=== PATIENT | male | born 1950 | race African-American/Black ===

== ENCOUNTER 2021-10-29 15:25 | Inpatient (IN) ==
[2021-10-29] MEDS ORDERED: Albuterol/Ipratropium NEB.SOL (2.5/0.5 MG) 3 ML NEB.SOLN ONE (15:29)
[2021-10-29] MEDS ORDERED: Albuterol/Ipratropium NEB.SOL (2.5/0.5 MG) 3 ML NEB.SOLN INH ONE (15:40)
[2021-10-29 15:50] LABS: ABS Lymphocytes 1.1 10^3/ul (1.0-4.8); ABS Monocytes 0.3 10^3/ul (0-0.8); ABS Neutrophils 7.1 10^3/ul (1.5-7.7); Eosinophil % 0.1 %; Hematocrit 28 % (42-52); Hemoglobin 9.1 g/dL (14.0-18.0); Lymphocyte % 12.8 %; Mean Corpuscular HGB Conc 33 g/dL (31-36); Mean Corpuscular Hemoglobin 24 pg (27-31); Mean Corpuscular Volume 74 fL (80-94); Mean Platelet Volume 7.2 fL (7.4-10.4); Platelet Count 455 10^3/uL (150-450); Red Blood Count 3.76 10^6 /uL (4.18-5.48); Red Cell Distribution Width 17 % (10-15); White Blood Count 8.5 10^3/uL (3.5-10.8)
[2021-10-29 15:56] LABS: Activated Partial Thrombo Time 45.6 seconds (26.0-38.0); INR 2.16 (0.86-1.15)
[2021-10-29 15:56] LABS: PCO2 Arterial 36 mmHg (35-45); PO2 Arterial 160 mmHg (80-100)
[2021-10-29] MEDS ORDERED: Piperacillin/Tazobac ADVAN 3.375 GM in NS 0.9% 100 ml BAG 100 ML IV ONE (16:49)
[2021-10-29 16:55] LABS: Albumin 3.4 g/dL (3.2-5.2); Albumin/Globulin Ratio 0.8 (1-3); C Reactive Protein 375.93 mg/L (<8.01); Calcium 10.2 mg/dL (8.6-10.3); Globulin 4.2 g/dL (2-4); Potassium 3.9 mmol/L (3.5-5.0); Total Protein 7.6 g/dL (6.4-8.9); eGFR CKD-EPI 55.4 (>60)
[2021-10-29] MEDS ORDERED: NS 0.9% 1000 ml BAG 1,000 ML IV ONE ×2 (17:00→21:21)
[2021-10-29 17:18] LABS: High Sensitivity Troponin 1 Hr 182 pg/mL (<20)
[2021-10-29 20:26] LABS: Urine Appearance Cloudy; Urine Bilirubin Negative (Negative); Urine Blood 2+ (Negative); Urine Color Amber; Urine Glucose Negative (Negative); Urine Ketones Trace (Negative); Urine Nitrite Negative (Negative); Urine Protein 1+(30 mg/dL) (Negative); Urine Specific Gravity 1.021 (1.002-1.030); Urine Urobilinogen Positive (Negative)
[2021-10-29 20:31] LABS: Urine Bacteria Absent (Absent); Urine Red Blood Cell 3+(>10/hpf) (Absent); Urine Squamous Epithelial Cell Present (Absent); Urine White Blood Cell 3+(>20/hpf) (Absent)
[2021-10-29] MEDS ORDERED: Vancomycin 750 MG in NS 0.9% 250 ml 250 ML IVPB ONE (21:28)
[2021-10-29 21:40] LABS: HDL Cholesterol 34.6 mg/dL
[2021-10-29] MEDS ORDERED: Vancomycin per Pharmacy 1 EA NOTE FOLLOW UP PRN ×2 (21:42→23:22)
[2021-10-29] MEDS ORDERED: metroNIDAZOLE IV 500 MG/100ML - ED ONCE IVPB ONE (22:00)
[2021-10-29] MEDS ORDERED: cefTRIAXone 1 gm/50 mL D5W 1 GM/50 ML BAG IV ONE (22:00)
[2021-10-30] MEDS: NS 0.9% 1000 ml BAG 1,000 ML IV SCH ×2 (00:02→11:58)
[2021-10-30] MEDS: metroNIDAZOLE IV 500 MG/100ML 500 MG/100 ML BAG IVPB SCH ×3 (05:26→21:57)
[2021-10-30] MEDS ORDERED: metroNIDAZOLE IV 500 MG/100ML 500 MG/100 ML BAG IVPB SCH (06:00)
[2021-10-30 07:11] LABS: Activated Partial Thrombo Time 43.2 seconds (26.0-38.0); INR 1.82 (0.86-1.15)
[2021-10-30 07:29] LABS: Anion Gap 9 mmol/L (2-11); Blood Urea Nitrogen 28 mg/dL (6-24); CO2 Carbon Dioxide 27 mmol/L (22-32); Calcium 8.8 mg/dL (8.6-10.3); Chloride 101 mmol/L (101-111); Glucose 75 mg/dL (70-100); Potassium 3.2 mmol/L (3.5-5.0); Sodium 137 mmol/L (135-145); eGFR CKD-EPI 96.9 (>60)
[2021-10-30] MEDS ORDERED: Potassium Chlor 10 meq TAB PO ONE (07:55)
[2021-10-30 08:01] LABS: ABS Lymphocytes 1.5 10^3/ul (1.0-4.8); ABS Monocytes 0.3 10^3/ul (0-0.8); ABS Neutrophils 5.9 10^3/ul (1.5-7.7); Eosinophil % 0.1 %; Hematocrit 24 % (42-52); Hemoglobin 7.8 g/dL (14.0-18.0); Lymphocyte % 19.8 %; Mean Corpuscular HGB Conc 32 g/dL (31-36); Mean Corpuscular Hemoglobin 24 pg (27-31); Mean Corpuscular Volume 75 fL (80-94); Mean Platelet Volume 7.8 fL (7.4-10.4); Platelet Count 377 10^3/uL (150-450); Red Blood Count 3.25 10^6 /uL (4.18-5.48); Red Cell Distribution Width 17 % (10-15); White Blood Count 7.8 10^3/uL (3.5-10.8)
[2021-10-30 11:07] LABS: Total Iron Binding Capacity 109 mcg/dL (250-450); Transferrin 78 mg/dL (203-362)
[2021-10-30] MEDS ORDERED: Iohexol 350 (CONTRAST) 500 ML MDV IV ONE (11:11)
[2021-10-30 11:13] LABS: % Iron Saturation 18 % (15-55); Iron < 20 ug/dL (50-212); Unsaturated Iron Binding 89 ug/dL
[2021-10-30 11:27] LABS: Ferritin 904.3 ng/mL (24-336)
[2021-10-30] MEDS ORDERED: Perflutren Lipid Microsphere 3 ML VIAL ONE (11:35)
[2021-10-30] MEDS ORDERED: Vancomycin 500 MG in NS 0.9% 250 ML IVPB SCH (13:00)
[2021-10-30] MEDS ORDERED: Vancomycin 1000 MG in NS 0.9% 250 ML IVPB ONE (14:00)
[2021-10-30] MEDS: HYDROcodone/ACETAMIN 5/325 mg TAB PO PRN (20:46)
[2021-10-30] MEDS: cefTRIAXone 1 gm/50 mL D5W 1 GM/50 ML BAG IV SCH (20:46)
[2021-10-30] MEDS ORDERED: cefTRIAXone 1 gm/50 mL D5W 1 GM/50 ML BAG IV SCH (21:00)
[2021-10-31] MEDS: NS 0.9% 1000 ml BAG 1,000 ML IV SCH ×2 (00:12→17:48)
[2021-10-31] MEDS: metroNIDAZOLE IV 500 MG/100ML 500 MG/100 ML BAG IVPB SCH ×3 (05:30→22:14)
[2021-10-31 05:47] LABS: Hematocrit 23 % (42-52); Hemoglobin 7.2 g/dL (14.0-18.0); Mean Corpuscular HGB Conc 32 g/dL (31-36); Mean Corpuscular Hemoglobin 24 pg (27-31); Mean Corpuscular Volume 74 fL (80-94); Mean Platelet Volume 7.5 fL (7.4-10.4); Platelet Count 364 10^3/uL (150-450); Red Blood Count 3.05 10^6 /uL (4.18-5.48); Red Cell Distribution Width 17 % (10-15); White Blood Count 7.9 10^3/uL (3.5-10.8)
[2021-10-31 06:12] LABS: C Reactive Protein 203.29 mg/L (<8.01); Calcium 8.6 mg/dL (8.6-10.3); Potassium 3.4 mmol/L (3.5-5.0)
[2021-10-31] MEDS: Vancomycin 1000 MG in NS 0.9% 250 ML IVPB SCH ×2 (06:40→17:45)
[2021-10-31 06:54] LABS: Target Cells 1+
[2021-10-31 06:56] LABS: ABS Lymphocytes 1.9 10^3/ul (1.0-4.8); ABS Monocytes 0.3 10^3/ul (0-0.8); ABS Neutrophils 5.6 10^3/ul (1.5-7.7); Eosinophil % 0.4 %; Lymphocyte % 24.3 %
[2021-10-31] MEDS ORDERED: Potassium Chlor 20 meq TAB.ER PO ONE (07:46)
[2021-10-31] MEDS ORDERED: Vancomycin Trough Check NOTE FOLLOW UP ONE (12:30)
[2021-10-31] MEDS: HYDROcodone/ACETAMIN 5/325 mg TAB PO PRN (13:48)
[2021-10-31] MEDS: Collagenase 250 units/gm OINT 1 tube TOPICAL SCH (15:01)
[2021-10-31 16:11] LABS: Hematocrit for Retic CNT 23 % (42-52); RBC Retic Count 3.05 10^6/uL (4.18-5.48)
[2021-10-31 16:15] LABS: Corrected Retic Count 0.4 % (0.5-1.5); Immature Retic Fraction 0.38
[2021-10-31] MEDS: cefTRIAXone 1 gm/50 mL D5W 1 GM/50 ML BAG IV SCH (20:20)
[2021-11-01] MEDS ORDERED: Vancomycin Trough Check NOTE FOLLOW UP ONE (05:30)
[2021-11-01] MEDS: metroNIDAZOLE IV 500 MG/100ML 500 MG/100 ML BAG IVPB SCH ×3 (06:10→21:54)
[2021-11-01] MEDS: NS 0.9% 1000 ml BAG 1,000 ML IV SCH (06:11)
[2021-11-01 06:49] LABS: Calcium 8.6 mg/dL (8.6-10.3); Magnesium 1.7 mg/dL (1.9-2.7); Potassium 3.1 mmol/L (3.5-5.0)
[2021-11-01 07:02] LABS: Hematocrit 24 % (42-52); Hemoglobin 7.9 g/dL (14.0-18.0); Mean Corpuscular HGB Conc 32 g/dL (31-36); Mean Corpuscular Hemoglobin 24 pg (27-31); Mean Corpuscular Volume 74 fL (80-94); Mean Platelet Volume 7.8 fL (7.4-10.4); Platelet Count 396 10^3/uL (150-450); Red Blood Count 3.28 10^6 /uL (4.18-5.48); Red Cell Distribution Width 17 % (10-15); White Blood Count 7.7 10^3/uL (3.5-10.8)
[2021-11-01 07:20] LABS: ABS Basophils 0.1 10^3/ul (0-0.2); ABS Monocytes 0.3 10^3/ul (0-0.8); ABS Neutrophils 5.3 10^3/ul (1.5-7.7); Eosinophil % 0.5 %; Lymphocyte % 25.9 %
[2021-11-01] MEDS ORDERED: Magnesium Sulfate IV 3 GM in NS 0.9% 100 ml BAG 100 ML IVPB ONE (07:38)
[2021-11-01] MEDS ORDERED: Magnesium Sulfate 2 GM IV (Premix) IVPB ONE (08:00)
[2021-11-01] MEDS ORDERED: Magnesium Sulfate 1 GM IV 1 GM/100 ML BAG IV ONE (08:00)
[2021-11-01] MEDS: KCL 20 MEQ/100 ML IVPREMIX 20 MEQ/100 ML BAG IV SCH ×2 (08:56→16:29)
[2021-11-01] MEDS: Collagenase 250 units/gm OINT 1 tube TOPICAL SCH (09:01)
[2021-11-01] MEDS: Vancomycin 1000 MG in NS 0.9% 250 ML IVPB SCH ×2 (10:08→17:08)
[2021-11-01] MEDS: D5W 1/2 NS KCl 20 meq 1000 ml 1,000 ML IV SCH (15:57)
[2021-11-01] MEDS: cefTRIAXone 1 gm/50 mL D5W 1 GM/50 ML BAG IV SCH (20:13)
[2021-11-02] MEDS: D5W 1/2 NS KCl 20 meq 1000 ml 1,000 ML IV SCH ×2 (02:10→23:20)
[2021-11-02] MEDS: metroNIDAZOLE IV 500 MG/100ML 500 MG/100 ML BAG IVPB SCH ×3 (06:23→23:20)
[2021-11-02] MEDS: Vancomycin 1000 MG in NS 0.9% 250 ML IVPB SCH ×2 (06:23→18:54)
[2021-11-02 08:24] LABS: C Reactive Protein 117.53 mg/L (<8.01); Calcium 8.3 mg/dL (8.6-10.3); Potassium 3.5 mmol/L (3.5-5.0); eGFR CKD-EPI 107.3 (>60)
[2021-11-02 10:17] LABS: ABS Eosinophils 0.1 10^3/ul (0-0.6); ABS Lymphocytes 2.4 10^3/ul (1.0-4.8); ABS Monocytes 0.3 10^3/ul (0-0.8); ABS Neutrophils 4.7 10^3/ul (1.5-7.7); Hematocrit 26 % (42-52); Hemoglobin 8.2 g/dL (14.0-18.0); Mean Corpuscular HGB Conc 32 g/dL (31-36); Mean Corpuscular Hemoglobin 24 pg (27-31); Mean Corpuscular Volume 74 fL (80-94); Mean Platelet Volume 7.9 fL (7.4-10.4); Platelet Count 387 10^3/uL (150-450); Red Blood Count 3.42 10^6 /uL (4.18-5.48); Red Cell Distribution Width 17 % (10-15); White Blood Count 7.5 10^3/uL (3.5-10.8)
[2021-11-02] MEDS: Collagenase 250 units/gm OINT 1 tube TOPICAL SCH (15:24)
[2021-11-02] MEDS: Acetaminophen IV 1 GM/100ML 100 ML IV PRN (23:08)
[2021-11-02] MEDS: cefTRIAXone 1 gm/50 mL D5W 1 GM/50 ML BAG IV SCH (23:20)
[2021-11-02] MEDS: Enoxaparin 60 MG/0.6 ML SYR SUBCUT SCH (23:20)
[2021-11-03] MEDS: Neomycin/Polym/Bacit TOP OINT 15 GM TOPICAL SCH ×4 (03:01→21:43)
[2021-11-03] MEDS: metroNIDAZOLE IV 500 MG/100ML 500 MG/100 ML BAG IVPB SCH ×3 (05:13→21:42)
[2021-11-03] MEDS ORDERED: Vancomycin Trough Check NOTE FOLLOW UP ONE (05:30)
[2021-11-03] MEDS ORDERED: NS 0.9% 1000 ml BAG 1,000 ML IV ONE (06:02)
[2021-11-03] MEDS ORDERED: Lactated Ringers 1000 ml BAG 1,000 ML IV ONE (06:04)
[2021-11-03 08:04] LABS: Hematocrit 26 % (42-52); Hemoglobin 8.4 g/dL (14.0-18.0); Mean Corpuscular HGB Conc 33 g/dL (31-36); Mean Corpuscular Hemoglobin 25 pg (27-31); Mean Corpuscular Volume 74 fL (80-94); Mean Platelet Volume 7.8 fL (7.4-10.4); Platelet Count 414 10^3/uL (150-450); Red Blood Count 3.44 10^6 /uL (4.18-5.48); Red Cell Distribution Width 17 % (10-15); White Blood Count 8.6 10^3/uL (3.5-10.8)
[2021-11-03 08:20] LABS: Magnesium 1.8 mg/dL (1.9-2.7); Potassium 3.2 mmol/L (3.5-5.0); eGFR CKD-EPI 105.6 (>60)
[2021-11-03] MEDS: Vancomycin 1000 MG in NS 0.9% 250 ML IVPB SCH (08:30)
[2021-11-03 09:23] LABS: Anisocytosis 1+; Hypochromasia 1+; Microcytosis 2+
[2021-11-03 09:24] LABS: ABS Lymphocytes 1.6 10^3/ul (1.0-4.8); ABS Neutrophils 6.5 10^3/ul (1.5-7.7)
[2021-11-03] MEDS: Morphine 2 MG/ML SYRINGE IV PRN (13:50)
[2021-11-03] MEDS ORDERED: Vancomycin 1,500 MG in NS 0.9% 250 ml 250 ML IVPB SCH (14:00)
[2021-11-03] MEDS: Enoxaparin 60 MG/0.6 ML SYR SUBCUT SCH ×2 (14:48→21:43)
[2021-11-03] MEDS: Collagenase 250 units/gm OINT 1 tube TOPICAL SCH (14:49)
[2021-11-03] MEDS: cefTRIAXone 1 gm/50 mL D5W 1 GM/50 ML BAG IV SCH (21:43)
[2021-11-03] MEDS ORDERED: Lactated Ringers 500 ml BAG 500 ML IV ONE (23:47)
[2021-11-04] MEDS: D5W 1/2 NS KCl 20 meq 1000 ml 1,000 ML IV SCH ×2 (01:37→23:14)
[2021-11-04] MEDS ORDERED: Lactated Ringers 1000 ml BAG 1,000 ML IV ONE ×2 (04:00→23:25)
[2021-11-04] MEDS: metroNIDAZOLE IV 500 MG/100ML 500 MG/100 ML BAG IVPB SCH ×3 (06:05→23:05)
[2021-11-04 08:01] LABS: CO2 Carbon Dioxide 18 mmol/L (22-32); Calcium 7.9 mg/dL (8.6-10.3); Chloride 110 mmol/L (101-111); Sodium 137 mmol/L (135-145)
[2021-11-04 08:07] LABS: Blood Urea Nitrogen 5 mg/dL (6-24); Glucose 80 mg/dL (70-100); eGFR CKD-EPI 105.6 (>60)
[2021-11-04 08:11] LABS: Anion Gap 9 mmol/L (2-11)
[2021-11-04 08:28] LABS: Hematocrit 30 % (42-52); Hemoglobin 9.2 g/dL (14.0-18.0); Mean Corpuscular HGB Conc 30 g/dL (31-36); Mean Corpuscular Hemoglobin 24 pg (27-31); Mean Corpuscular Volume 79 fL (80-94); Mean Platelet Volume 7.8 fL (7.4-10.4); Platelet Count 362 10^3/uL (150-450); Red Blood Count 3.82 10^6 /uL (4.18-5.48); Red Cell Distribution Width 18 % (10-15); White Blood Count 10.7 10^3/uL (3.5-10.8)
[2021-11-04 09:05] LABS: RBC Morphology Normal (Normal)
[2021-11-04 09:06] LABS: ABS Eosinophils 0.1 10^3/ul (0-0.6); ABS Neutrophils 9.3 10^3/ul (1.5-7.7)
[2021-11-04] MEDS: Neomycin/Polym/Bacit TOP OINT 15 GM TOPICAL SCH ×3 (09:35→23:05)
[2021-11-04] MEDS: Enoxaparin 60 MG/0.6 ML SYR SUBCUT SCH ×2 (12:05→23:05)
[2021-11-04] MEDS: Collagenase 250 units/gm OINT 1 tube TOPICAL SCH (12:23)
[2021-11-04] MEDS ORDERED: Iohexol 300 (CONTRAST) 10 ML SDV IV ONE (13:53)
[2021-11-04] MEDS: cefTRIAXone 1 gm/50 mL D5W 1 GM/50 ML BAG IV SCH (23:05)
[2021-11-05] MEDS: metroNIDAZOLE IV 500 MG/100ML 500 MG/100 ML BAG IVPB SCH ×3 (06:44→22:51)
[2021-11-05] MEDS: Neomycin/Polym/Bacit TOP OINT 15 GM TOPICAL SCH ×3 (09:00→23:04)
[2021-11-05] MEDS: Collagenase 250 units/gm OINT 1 tube TOPICAL SCH (09:00)
[2021-11-05] MEDS ORDERED: Lactated Ringers 1000 ml BAG 1,000 ML IV ONE (12:11)
[2021-11-05] MEDS: Enoxaparin 60 MG/0.6 ML SYR SUBCUT SCH ×2 (12:16→21:46)
[2021-11-05] MEDS ORDERED: Vancomycin Trough Check NOTE FOLLOW UP ONE (13:30)
[2021-11-05 13:32] LABS: ABS Basophils 0.1 10^3/ul (0-0.2); ABS Lymphocytes 0.6 10^3/ul (1.0-4.8); ABS Monocytes 0.8 10^3/ul (0-0.8); ABS Neutrophils 12.5 10^3/ul (1.5-7.7); Eosinophil % 0.2 %; Hematocrit 28 % (42-52); Hemoglobin 8.9 g/dL (14.0-18.0); Lymphocyte % 4.2 %; Mean Corpuscular HGB Conc 32 g/dL (31-36); Mean Corpuscular Hemoglobin 24 pg (27-31); Mean Corpuscular Volume 74 fL (80-94); Mean Platelet Volume 7.8 fL (7.4-10.4); Platelet Count 547 10^3/uL (150-450); Red Blood Count 3.78 10^6 /uL (4.18-5.48); Red Cell Distribution Width 18 % (10-15)
[2021-11-05 13:51] LABS: Target Cells 1+
[2021-11-05 14:38] LABS: Albumin 2.3 g/dL (3.2-5.2); Calcium 7.9 mg/dL (8.6-10.3); Potassium 3.4 mmol/L (3.5-5.0); Total Bilirubin 0.5 mg/dL (0.2-1.0)
[2021-11-05 14:45] LABS: Albumin/Globulin Ratio 0.8 (1-3); Globulin 2.8 g/dL (2-4); Total Protein 5.1 g/dL (6.4-8.9)
[2021-11-05] MEDS: Morphine 2 MG/ML SYRINGE IV PRN (14:58)
[2021-11-05] MEDS: D5W 1/2 NS KCl 20 meq 1000 ml 1,000 ML IV SCH (19:09)
[2021-11-05] MEDS: cefTRIAXone 1 gm/50 mL D5W 1 GM/50 ML BAG IV SCH (21:44)
[2021-11-06] MEDS ORDERED: Lactated Ringers 500 ml BAG 500 ML IV SCH (05:00)
[2021-11-06] MEDS: metroNIDAZOLE IV 500 MG/100ML 500 MG/100 ML BAG IVPB SCH ×3 (05:15→22:27)
[2021-11-06 06:57] LABS: ABS Lymphocytes 0.5 10^3/ul (1.0-4.8); ABS Monocytes 0.7 10^3/ul (0-0.8); ABS Neutrophils 10.8 10^3/ul (1.5-7.7); Eosinophil % 0.2 %; Hematocrit 24 % (42-52); Hemoglobin 7.8 g/dL (14.0-18.0); Lymphocyte % 3.9 %; Mean Corpuscular HGB Conc 32 g/dL (31-36); Mean Corpuscular Hemoglobin 24 pg (27-31); Mean Corpuscular Volume 74 fL (80-94); Mean Platelet Volume 7.7 fL (7.4-10.4); Platelet Count 389 10^3/uL (150-450); Red Blood Count 3.25 10^6 /uL (4.18-5.48); Red Cell Distribution Width 17 % (10-15); White Blood Count 12.1 10^3/uL (3.5-10.8)
[2021-11-06 07:20] LABS: Albumin 1.8 g/dL (3.2-5.2); Albumin/Globulin Ratio 0.6 (1-3); Calcium 7.6 mg/dL (8.6-10.3); Globulin 2.8 g/dL (2-4); Magnesium 1.6 mg/dL (1.9-2.7); Potassium 3.5 mmol/L (3.5-5.0); Total Bilirubin 0.4 mg/dL (0.2-1.0); Total Protein 4.6 g/dL (6.4-8.9); eGFR CKD-EPI 106.7 (>60)
[2021-11-06] MEDS ORDERED: Magnesium Sulfate 2 gm BAG 2 GM/50 ML BAG IVPB ONE ×2 (08:38→10:02)
[2021-11-06] MEDS: Collagenase 250 units/gm OINT 1 tube TOPICAL SCH (10:29)
[2021-11-06] MEDS: Neomycin/Polym/Bacit TOP OINT 15 GM TOPICAL SCH ×3 (10:29→22:38)
[2021-11-06] MEDS: Enoxaparin 60 MG/0.6 ML SYR SUBCUT SCH (10:38)
[2021-11-06] MEDS: D5W 1/2 NS KCl 20 meq 1000 ml 1,000 ML IV SCH (12:31)
[2021-11-06] MEDS: TPN 24 HR with D10W 1000 ml BAG 1,000 ML, Amino Acid Infusion 10% 850 ML, Sterile Water... IV SCH (17:56)
[2021-11-06] MEDS: Morphine 2 MG/ML SYRINGE IV PRN (21:24)
[2021-11-06] MEDS: cefTRIAXone 1 gm/50 mL D5W 1 GM/50 ML BAG IV SCH (21:27)
[2021-11-07] MEDS: metroNIDAZOLE IV 500 MG/100ML 500 MG/100 ML BAG IVPB SCH ×3 (06:07→23:01)
[2021-11-07 09:02] LABS: Hematocrit 24 % (42-52); Hemoglobin 7.6 g/dL (14.0-18.0); Mean Corpuscular HGB Conc 32 g/dL (31-36); Mean Corpuscular Hemoglobin 24 pg (27-31); Mean Corpuscular Volume 75 fL (80-94); Mean Platelet Volume 7.7 fL (7.4-10.4); Platelet Count 460 10^3/uL (150-450); Red Blood Count 3.17 10^6 /uL (4.18-5.48); Red Cell Distribution Width 17 % (10-15); White Blood Count 13.2 10^3/uL (3.5-10.8)
[2021-11-07 09:43] LABS: Albumin 1.9 g/dL (3.2-5.2); Calcium 7.9 mg/dL (8.6-10.3); Magnesium 1.9 mg/dL (1.9-2.7); Potassium 3.8 mmol/L (3.5-5.0); Total Bilirubin 0.3 mg/dL (0.2-1.0)
[2021-11-07 09:50] LABS: Albumin/Globulin Ratio 0.7 (1-3); Globulin 2.8 g/dL (2-4); Phosphorus 2.4 mg/dL (2.5-5.0); Total Protein 4.7 g/dL (6.4-8.9); eGFR CKD-EPI 108.5 (>60)
[2021-11-07 09:59] LABS: Microcytosis 2+; Target Cells 2+
[2021-11-07 10:00] LABS: ABS Lymphocytes 1.8 10^3/ul (1.0-4.8)
[2021-11-07] MEDS: Collagenase 250 units/gm OINT 1 tube TOPICAL SCH (11:16)
[2021-11-07] MEDS: Neomycin/Polym/Bacit TOP OINT 15 GM TOPICAL SCH ×2 (11:16→12:49)
[2021-11-07] MEDS: Enoxaparin 60 MG/0.6 ML SYR SUBCUT SCH ×2 (12:48)
[2021-11-07 14:51] LABS: C Reactive Protein 126.78 mg/L (<8.01)
[2021-11-07] MEDS ORDERED: LORazepam 2 mg VIAL 1 ml IV PUSH ONE (19:07)
[2021-11-07] MEDS ORDERED: Lorazepam PYXIS KEY PRN (19:07)
[2021-11-07 20:04] LABS: Copper Level 1.12 mcg/mL (0.75-1.45)
[2021-11-07] MEDS: Morphine 2 MG/ML SYRINGE IV PRN ×2 (20:13→22:09)
[2021-11-07] MEDS: TPN 24 HR with D10W 1000 ml BAG 1,000 ML, Amino Acid Infusion 10% 850 ML, Sterile Water... IV SCH (20:15)
[2021-11-07] MEDS: Acetaminophen IV 1 GM/100ML 100 ML IV PRN (20:44)
[2021-11-07] MEDS: cefTRIAXone 1 gm/50 mL D5W 1 GM/50 ML BAG IV SCH (22:10)
[2021-11-08] MEDS: Neomycin/Polym/Bacit TOP OINT 15 GM TOPICAL SCH ×5 (00:45→22:09)
[2021-11-08] MEDS: Enoxaparin 60 MG/0.6 ML SYR SUBCUT SCH ×3 (00:46→22:03)
[2021-11-08] MEDS: metroNIDAZOLE IV 500 MG/100ML 500 MG/100 ML BAG IVPB SCH ×3 (06:20→22:05)
[2021-11-08 07:27] LABS: Albumin 1.9 g/dL (3.2-5.2); CO2 Carbon Dioxide 24 mmol/L (22-32); Calcium 7.8 mg/dL (8.6-10.3); Chloride 109 mmol/L (101-111); Sodium 137 mmol/L (135-145)
[2021-11-08 07:34] LABS: ALT 4 U/L (7-52); Albumin/Globulin Ratio 0.6 (1-3); Alkaline Phosphatase 74 U/L (35-149); Blood Urea Nitrogen 10 mg/dL (6-24); Cholesterol 148 mg/dL; Globulin 3.1 g/dL (2-4); Glucose 77 mg/dL (70-100); Prealbumin 6 mg/dL (18-38); Triglycerides 101 mg/dL; eGFR CKD-EPI 109.8 (>60)
[2021-11-08 07:36] LABS: Hematocrit 24 % (42-52); Hemoglobin 7.7 g/dL (14.0-18.0); Mean Corpuscular HGB Conc 32 g/dL (31-36); Mean Corpuscular Hemoglobin 24 pg (27-31); Mean Corpuscular Volume 75 fL (80-94); Red Blood Count 3.17 10^6 /uL (4.18-5.48); Red Cell Distribution Width 18 % (10-15); White Blood Count 10.4 10^3/uL (3.5-10.8)
[2021-11-08 07:43] LABS: Anion Gap 4 mmol/L (2-11)
[2021-11-08 08:39] LABS: Anisocytosis 2+; Hypochromasia 1+; Microcytosis 1+; Target Cells 1+
[2021-11-08 08:40] LABS: Mean Platelet Volume 8.5 fL (7.4-10.4); Platelet Count 371 10^3/uL (150-450)
[2021-11-08 08:41] LABS: ABS Eosinophils 0.1 10^3/ul (0-0.6); ABS Lymphocytes 1.4 10^3/ul (1.0-4.8); ABS Neutrophils 8.4 10^3/ul (1.5-7.7)
[2021-11-08] MEDS: Collagenase 250 units/gm OINT 1 tube TOPICAL SCH (09:25)
[2021-11-08 10:09] LABS: Potassium Redraw 3.8 mmol/L (3.5-5.0)
[2021-11-08 10:15] LABS: Phosphorus 2.5 mg/dL (2.5-5.0)
[2021-11-08] MEDS ORDERED: LORazepam 2 mg VIAL 1 ml IM ONE (14:39)
[2021-11-08] MEDS ORDERED: Lorazepam PYXIS KEY PRN ×2 (14:39→18:10)
[2021-11-08] MEDS ORDERED: Morphine ORAL CONCENTRATE 5 MG/0.25 ML ORAL.SYRIN SL ONE (14:41)
[2021-11-08] MEDS: TPN 24 HR with D10W 1000 ml BAG 1,000 ML, Amino Acid Infusion 10% 850 ML, Sterile Water... IV SCH (16:34)
[2021-11-08] MEDS ORDERED: LORazepam 2 mg VIAL 1 ml IV PUSH ONE (18:10)
[2021-11-08 18:39] LABS: HIV 4th Generation Nonreactive (Nonreactive)
[2021-11-08] MEDS: cefTRIAXone 1 gm/50 mL D5W 1 GM/50 ML BAG IV SCH (21:57)
[2021-11-08] MEDS: Morphine 2 MG/ML SYRINGE IV PRN (22:12)
[2021-11-09] MEDS: metroNIDAZOLE IV 500 MG/100ML 500 MG/100 ML BAG IVPB SCH (05:43)
[2021-11-09 06:18] LABS: Hematocrit 19 % (42-52); Hemoglobin 6.2 g/dL (14.0-18.0); Mean Corpuscular HGB Conc 33 g/dL (31-36); Mean Corpuscular Hemoglobin 24 pg (27-31); Mean Corpuscular Volume 73 fL (80-94); Mean Platelet Volume 7.2 fL (7.4-10.4); Platelet Count 401 10^3/uL (150-450); Red Blood Count 2.59 10^6 /uL (4.18-5.48); Red Cell Distribution Width 17 % (10-15); White Blood Count 9.6 10^3/uL (3.5-10.8)
[2021-11-09 06:22] LABS: ABS Lymphocytes 1.1 10^3/ul (1.0-4.8); ABS Monocytes 0.4 10^3/ul (0-0.8); Eosinophil % 0.4 %; Lymphocyte % 11.9 %
[2021-11-09 07:34] LABS: Albumin 1.8 g/dL (3.2-5.2); Albumin/Globulin Ratio 0.7 (1-3); Calcium 7.5 mg/dL (8.6-10.3); Globulin 2.5 g/dL (2-4); Magnesium 1.8 mg/dL (1.9-2.7); Phosphorus 2.5 mg/dL (2.5-5.0); Potassium 3.5 mmol/L (3.5-5.0); Total Bilirubin 0.2 mg/dL (0.2-1.0); Total Protein 4.3 g/dL (6.4-8.9)
[2021-11-09] MEDS: Neomycin/Polym/Bacit TOP OINT 15 GM TOPICAL SCH ×3 (11:02→21:01)
[2021-11-09] MEDS: Enoxaparin 60 MG/0.6 ML SYR SUBCUT SCH (11:02)
[2021-11-09] MEDS: Collagenase 250 units/gm OINT 1 tube TOPICAL SCH (11:02)
[2021-11-09] MEDS: Morphine 2 MG/ML SYRINGE IV PRN (11:03)
[2021-11-09] MEDS ORDERED: Magnesium Sulfate 2 gm BAG 2 GM/50 ML BAG IVPB ONE (11:41)
[2021-11-09] MEDS: TPN 24 HR with D10W 1000 ml BAG 1,000 ML, Amino Acid Infusion 10% 850 ML, Sterile Water... IV SCH (17:11)
[2021-11-09] MEDS: Pantoprazole VIAL 40 MG VIAL IV SCH (20:55)
[2021-11-09 22:47] LABS: Hematocrit 22 % (42-52); Hemoglobin 7.2 g/dL (14.0-18.0)
[2021-11-10 06:46] LABS: Albumin 1.8 g/dL (3.2-5.2); Albumin/Globulin Ratio 0.7 (1-3); Calcium 7.6 mg/dL (8.6-10.3); Globulin 2.5 g/dL (2-4); Phosphorus 2.3 mg/dL (2.5-5.0); Potassium 3.5 mmol/L (3.5-5.0); Total Bilirubin 0.3 mg/dL (0.2-1.0); Total Protein 4.3 g/dL (6.4-8.9); eGFR CKD-EPI 114.8 (>60)
[2021-11-10] MEDS: Collagenase 250 units/gm OINT 1 tube TOPICAL SCH (11:17)
[2021-11-10] MEDS: Neomycin/Polym/Bacit TOP OINT 15 GM TOPICAL SCH ×3 (11:17→20:26)
[2021-11-10] MEDS: Pantoprazole VIAL 40 MG VIAL IV SCH ×2 (11:17→20:27)
[2021-11-10] MEDS: Morphine 2 MG/ML SYRINGE IV PRN ×3 (11:17→17:06)
[2021-11-10 17:44] LABS: ABS Eosinophils 0.1 10^3/ul (0-0.6); ABS Lymphocytes 0.9 10^3/ul (1.0-4.8); ABS Monocytes 0.4 10^3/ul (0-0.8); ABS Neutrophils 7.2 10^3/ul (1.5-7.7); Eosinophil % 0.6 %; Hematocrit 22 % (42-52); Hemoglobin 7.2 g/dL (14.0-18.0); Lymphocyte % 10.8 %; Mean Corpuscular HGB Conc 33 g/dL (31-36); Mean Corpuscular Hemoglobin 24 pg (27-31); Mean Corpuscular Volume 73 fL (80-94); Mean Platelet Volume 7.2 fL (7.4-10.4); Platelet Count 368 10^3/uL (150-450); Red Blood Count 3.01 10^6 /uL (4.18-5.48); Red Cell Distribution Width 17 % (10-15); White Blood Count 8.6 10^3/uL (3.5-10.8)
[2021-11-10] MEDS: TPN 24 HR with Dextrose 70% Water 350 ML, Amino Acid Infusion 10% 850 ML, Sterile Water... TPN SCH (17:48)
[2021-11-10 18:06] LABS: Albumin 1.9 g/dL (3.2-5.2); Albumin/Globulin Ratio 0.8 (1-3); C Reactive Protein 67.24 mg/L (<8.01); Calcium 7.5 mg/dL (8.6-10.3); Globulin 2.3 g/dL (2-4); Potassium 3.7 mmol/L (3.5-5.0); Total Bilirubin 0.3 mg/dL (0.2-1.0); Total Protein 4.2 g/dL (6.4-8.9)
[2021-11-11 05:20] LABS: ABS Eosinophils 0.1 10^3/ul (0-0.6); ABS Monocytes 0.3 10^3/ul (0-0.8); ABS Neutrophils 5.5 10^3/ul (1.5-7.7); Eosinophil % 0.7 %; Hematocrit 20 % (42-52); Hemoglobin 6.5 g/dL (14.0-18.0); Lymphocyte % 14.1 %; Mean Corpuscular HGB Conc 33 g/dL (31-36); Mean Corpuscular Hemoglobin 24 pg (27-31); Mean Corpuscular Volume 73 fL (80-94); Mean Platelet Volume 7.1 fL (7.4-10.4); Platelet Count 351 10^3/uL (150-450); Red Blood Count 2.69 10^6 /uL (4.18-5.48); Red Cell Distribution Width 17 % (10-15); White Blood Count 6.9 10^3/uL (3.5-10.8)
[2021-11-11 05:47] LABS: ALT 4 U/L (7-52); AST 10 U/L (13-39); Albumin 1.7 g/dL (3.2-5.2); Albumin/Globulin Ratio 0.7 (1-3); Alkaline Phosphatase 54 U/L (35-149); Anion Gap 4 mmol/L (2-11); Blood Urea Nitrogen 16 mg/dL (6-24); CO2 Carbon Dioxide 25 mmol/L (22-32); Calcium 7.5 mg/dL (8.6-10.3); Chloride 108 mmol/L (101-111); Cholesterol 106 mg/dL; Globulin 2.4 g/dL (2-4); Glucose 93 mg/dL (70-100); Magnesium 1.9 mg/dL (1.9-2.7); Phosphorus 2.5 mg/dL (2.5-5.0); Potassium 3.8 mmol/L (3.5-5.0); Prealbumin 7 mg/dL (18-38); Sodium 137 mmol/L (135-145); Total Protein 4.1 g/dL (6.4-8.9); Triglycerides 107 mg/dL; eGFR CKD-EPI 112.5 (>60)
[2021-11-11] MEDS: Collagenase 250 units/gm OINT 1 tube TOPICAL SCH (08:30)
[2021-11-11] MEDS: Neomycin/Polym/Bacit TOP OINT 15 GM TOPICAL SCH ×3 (08:30→20:25)
[2021-11-11] MEDS: Pantoprazole VIAL 40 MG VIAL IV SCH ×2 (08:30→20:25)
[2021-11-11 15:24] LABS: Rheumatoid Factor < 10 IU/mL (<15)
[2021-11-11 15:40] LABS: Folate 4.67 ng/mL (5.90-24.80)
[2021-11-11 17:00] LABS: LDH 111 U/L (140-271)
[2021-11-11] MEDS: TPN 24 HR with Dextrose 70% Water 350 ML, Amino Acid Infusion 10% 850 ML, Sterile Water... TPN SCH (17:37)
[2021-11-12] MEDS ORDERED: Folic Acid IV 1 MG in NS 0.9% 50 ML 50 ML IV ONE (08:00)
[2021-11-12 08:26] LABS: ABS Eosinophils 0.1 10^3/ul (0-0.6); ABS Monocytes 0.3 10^3/ul (0-0.8); ABS Neutrophils 4.5 10^3/ul (1.5-7.7); Eosinophil % 1.1 %; Hematocrit 23 % (42-52); Hemoglobin 8.1 g/dL (14.0-18.0); Lymphocyte % 17.3 %; Mean Corpuscular HGB Conc 35 g/dL (31-36); Mean Corpuscular Hemoglobin 28 pg (27-31); Mean Corpuscular Volume 79 fL (80-94); Mean Platelet Volume 7.5 fL (7.4-10.4); Platelet Count 321 10^3/uL (150-450); Red Blood Count 2.93 10^6 /uL (4.18-5.48); Red Cell Distribution Width 19 % (10-15)
[2021-11-12] MEDS: Pantoprazole VIAL 40 MG VIAL IV SCH ×2 (09:13→21:08)
[2021-11-12] MEDS: Neomycin/Polym/Bacit TOP OINT 15 GM TOPICAL SCH ×3 (09:13→21:08)
[2021-11-12] MEDS: Collagenase 250 units/gm OINT 1 tube TOPICAL SCH (09:13)
[2021-11-12 10:25] LABS: Albumin 1.8 g/dL (3.2-5.2); Albumin/Globulin Ratio 0.7 (1-3); Calcium 7.7 mg/dL (8.6-10.3); Globulin 2.6 g/dL (2-4); Magnesium 1.8 mg/dL (1.9-2.7); Potassium 3.7 mmol/L (3.5-5.0); Total Bilirubin 0.3 mg/dL (0.2-1.0); Total Protein 4.4 g/dL (6.4-8.9); eGFR CKD-EPI 113.2 (>60)
[2021-11-12] MEDS ORDERED: Magnesium Sulfate 2 gm BAG 2 GM/50 ML BAG IVPB ONE (10:43)
[2021-11-12 11:14] LABS: Osmolality Serum 284 mOsm/kg (275-295)
[2021-11-12] MEDS: Iron Sucrose 200 MG in NS 0.9% 100 ml BAG 100 ML IVPB SCH (14:25)
[2021-11-12] MEDS: Acetaminophen IV 1 GM/100ML 100 ML IV PRN (16:23)
[2021-11-12] MEDS: TPN 24 HR with Dextrose 70% Water 350 ML, Amino Acid Infusion 10% 850 ML, Sterile Water... TPN SCH (17:27)
[2021-11-13 05:28] LABS: ABS Basophils 0.1 10^3/ul (0-0.2); ABS Eosinophils 0.1 10^3/ul (0-0.6); ABS Monocytes 0.3 10^3/ul (0-0.8); ABS Neutrophils 4.4 10^3/ul (1.5-7.7); Eosinophil % 1.7 %; Hematocrit 23 % (42-52); Hemoglobin 8.1 g/dL (14.0-18.0); Lymphocyte % 16.8 %; Mean Corpuscular HGB Conc 36 g/dL (31-36); Mean Corpuscular Hemoglobin 29 pg (27-31); Mean Corpuscular Volume 81 fL (80-94); Mean Platelet Volume 7.5 fL (7.4-10.4); Nucleated Red Blood Cells % 0.1; Platelet Count 326 10^3/uL (150-450); Red Blood Count 2.84 10^6 /uL (4.18-5.48); Red Cell Distribution Width 20 % (10-15); White Blood Count 5.8 10^3/uL (3.5-10.8)
[2021-11-13 05:35] LABS: INR 1.45 (0.86-1.15)
[2021-11-13 06:02] LABS: Albumin 1.7 g/dL (3.2-5.2); Albumin/Globulin Ratio 0.7 (1-3); Calcium 8.5 mg/dL (8.6-10.3); Globulin 2.3 g/dL (2-4); Total Bilirubin 0.2 mg/dL (0.2-1.0); eGFR CKD-EPI 107.9 (>60)
[2021-11-13 06:22] LABS: Potassium 7.3 mmol/L (3.5-5.0)
[2021-11-13] MEDS: Pantoprazole VIAL 40 MG VIAL IV SCH ×2 (10:21→21:39)
[2021-11-13 11:23] LABS: Calcium 7.9 mg/dL (8.6-10.3); Potassium 4.3 mmol/L (3.5-5.0); eGFR CKD-EPI 111.1 (>60)
[2021-11-13] MEDS: Morphine 2 MG/ML SYRINGE IV PRN (12:43)
[2021-11-13] MEDS: Iron Sucrose 200 MG in NS 0.9% 100 ml BAG 100 ML IVPB SCH (12:48)
[2021-11-13] MEDS: Collagenase 250 units/gm OINT 1 tube TOPICAL SCH (14:21)
[2021-11-13] MEDS: Neomycin/Polym/Bacit TOP OINT 15 GM TOPICAL SCH ×3 (14:22→21:40)
[2021-11-13] MEDS ORDERED: Phytonadione IV (Adult) 2.5 MG in NS 0.9% 50 ML 50 ML IV ONE (17:00)
[2021-11-13] MEDS: TPN 24 HR with Dextrose 70% Water 350 ML, Amino Acid Infusion 10% 850 ML, Sterile Water... TPN SCH (17:30)
[2021-11-14 06:08] LABS: ABS Basophils 0.1 10^3/ul (0-0.2); ABS Eosinophils 0.1 10^3/ul (0-0.6); ABS Lymphocytes 1.2 10^3/ul (1.0-4.8); ABS Monocytes 0.4 10^3/ul (0-0.8); ABS Neutrophils 5.1 10^3/ul (1.5-7.7); Eosinophil % 1.3 %; Hematocrit 24 % (42-52); Hemoglobin 7.9 g/dL (14.0-18.0); Lymphocyte % 17.5 %; Mean Corpuscular HGB Conc 33 g/dL (31-36); Mean Corpuscular Hemoglobin 25 pg (27-31); Mean Corpuscular Volume 75 fL (80-94); Mean Platelet Volume 7.6 fL (7.4-10.4); Nucleated Red Blood Cells % 0.1; Platelet Count 306 10^3/uL (150-450); Red Blood Count 3.17 10^6 /uL (4.18-5.48); Red Cell Distribution Width 19 % (10-15); White Blood Count 6.8 10^3/uL (3.5-10.8)
[2021-11-14 06:10] LABS: Calcium 7.7 mg/dL (8.6-10.3); Potassium 4.1 mmol/L (3.5-5.0)
[2021-11-14 06:16] LABS: eGFR CKD-EPI 117.2 (>60)
[2021-11-14 06:48] LABS: INR 1.29 (0.86-1.15)
[2021-11-14] MEDS: Morphine 2 MG/ML SYRINGE IV PRN (11:07)
[2021-11-14] MEDS: Iron Sucrose 200 MG in NS 0.9% 100 ml BAG 100 ML IVPB SCH (11:15)
[2021-11-14] MEDS: Pantoprazole VIAL 40 MG VIAL IV SCH ×2 (11:15→21:52)
[2021-11-14] MEDS: Collagenase 250 units/gm OINT 1 tube TOPICAL SCH (11:16)
[2021-11-14] MEDS: Neomycin/Polym/Bacit TOP OINT 15 GM TOPICAL SCH ×3 (11:16→21:56)
[2021-11-14] MEDS: Folic Acid IV 1 MG in NS 0.9% 50 ML 50 ML IV SCH (11:42)
[2021-11-14 12:38] LABS: Total Protein 4.5 g/dL (6.4-8.9)
[2021-11-14] MEDS ORDERED: Heparin 5000 UNITS/ML 1 mL VIAL SUBCUT SCH (16:00)
[2021-11-14] MEDS: TPN 24 HR with Dextrose 70% Water 350 ML, Amino Acid Infusion 10% 850 ML, Sterile Water... TPN SCH (17:28)
[2021-11-14 19:24] LABS: TSH Ultra Thyroid Stim Horm 9.01 mcIU/mL (0.34-5.60)
[2021-11-14 19:26] LABS: Free T4 1.07 ng/dL (0.61-1.12)
[2021-11-14 19:53] LABS: Haptoglobin 303 mg/dL (30 - 200)
[2021-11-15 05:52] LABS: ABS Basophils 0.1 10^3/ul (0-0.2); ABS Eosinophils 0.1 10^3/ul (0-0.6); ABS Lymphocytes 1.2 10^3/ul (1.0-4.8); ABS Monocytes 0.3 10^3/ul (0-0.8); Eosinophil % 1.1 %; Hematocrit 24 % (42-52); Hemoglobin 7.7 g/dL (14.0-18.0); Lymphocyte % 17.5 %; Mean Corpuscular HGB Conc 33 g/dL (31-36); Mean Corpuscular Hemoglobin 25 pg (27-31); Mean Corpuscular Volume 76 fL (80-94); Mean Platelet Volume 7.6 fL (7.4-10.4); Platelet Count 197 10^3/uL (150-450); Red Blood Count 3.09 10^6 /uL (4.18-5.48); Red Cell Distribution Width 19 % (10-15); White Blood Count 6.6 10^3/uL (3.5-10.8)
[2021-11-15 06:32] LABS: Albumin 1.9 g/dL (3.2-5.2); Albumin/Globulin Ratio 0.7 (1-3); Calcium 7.8 mg/dL (8.6-10.3); Globulin 2.7 g/dL (2-4); Magnesium 1.8 mg/dL (1.9-2.7); Phosphorus 2.8 mg/dL (2.5-5.0); Potassium 4.1 mmol/L (3.5-5.0); Total Bilirubin 0.3 mg/dL (0.2-1.0); Total Protein 4.6 g/dL (6.4-8.9); eGFR CKD-EPI 117.2 (>60)
[2021-11-15] MEDS ORDERED: Magnesium Sulfate IV 1GM/100ML 1 GM/100 ML BAG IV ONE (07:17)
[2021-11-15] MEDS: Pantoprazole VIAL 40 MG VIAL IV SCH ×2 (12:45→20:56)
[2021-11-15] MEDS: Iron Sucrose 200 MG in NS 0.9% 100 ml BAG 100 ML IVPB SCH (12:45)
[2021-11-15] MEDS: Neomycin/Polym/Bacit TOP OINT 15 GM TOPICAL SCH ×3 (12:45→20:57)
[2021-11-15] MEDS: Collagenase 250 units/gm OINT 1 tube TOPICAL SCH (12:46)
[2021-11-15 13:18] LABS: Albumin 1.5 g/dL (3.4-4.7); Albumin/Globulin Ratio 0.57; Gamma Globulin 1.2 g/dL (0.6-1.6); Total Protein(PEP) 4.2 g/dL (6.3 - 7.9)
[2021-11-15] MEDS: Folic Acid IV 1 MG in NS 0.9% 50 ML 50 ML IV SCH (15:44)
[2021-11-15] MEDS ORDERED: TPN 24 HR with Dextrose 70% Water 350 ML, Amino Acid Infusion 10% 850 ML, Sterile Water... TPN SCH (17:00)
[2021-11-15] MEDS: Heparin 5000 UNITS/ML 1 mL VIAL SUBCUT SCH (20:56)
[2021-11-16] MEDS: Heparin 5000 UNITS/ML 1 mL VIAL SUBCUT SCH (04:46)
[2021-11-16] MEDS: Morphine 2 MG/ML SYRINGE IV PRN ×3 (04:47→23:08)
[2021-11-16 08:07] LABS: CO2 Carbon Dioxide 19 mmol/L (22-32); Calcium 8.3 mg/dL (8.6-10.3); Chloride 105 mmol/L (101-111); Sodium 133 mmol/L (135-145)
[2021-11-16 08:13] LABS: Blood Urea Nitrogen 16 mg/dL (6-24); Glucose 85 mg/dL (70-100); Prealbumin 14 mg/dL (18-38); eGFR CKD-EPI 111.8 (>60)
[2021-11-16 08:38] LABS: Anion Gap 9 mmol/L (2-11)
[2021-11-16] MEDS: Neomycin/Polym/Bacit TOP OINT 15 GM TOPICAL SCH ×3 (10:25→19:33)
[2021-11-16] MEDS: Pantoprazole VIAL 40 MG VIAL IV SCH ×2 (10:56→19:51)
[2021-11-16] MEDS: Iron Sucrose 200 MG in NS 0.9% 100 ml BAG 100 ML IVPB SCH (10:56)
[2021-11-16] MEDS: Collagenase 250 units/gm OINT 1 tube TOPICAL SCH (10:57)
[2021-11-16] MEDS: Folic Acid IV 1 MG in NS 0.9% 50 ML 50 ML IV SCH (10:57)
[2021-11-16] MEDS ORDERED: ceFAZolin 2 GM in NS PREMIX 2 GM/100 ML BAG IVPB ONE (15:02)
[2021-11-16] MEDS ORDERED: Propofol 10 MG/ML 20 ML BTL ONE (16:09)
[2021-11-16] MEDS ORDERED: Rocuronium 50 mg VIAL 10 mg/ml 5 ml VIAL (50 mg) ONE (16:09)
[2021-11-16] MEDS ORDERED: EPHEDrine (Pressors) 50 MG/ML VIAL ONE (16:10)
[2021-11-16] MEDS ORDERED: TPN 24 HR with Dextrose 70% Water 350 ML, Amino Acid Infusion 10% 850 ML, Sterile Water... TPN SCH (17:00)
[2021-11-16] MEDS ORDERED: Naloxone 0.4 mg VIAL 0.4 mg/ml 1 ml VIAL IV PRN (17:12)
[2021-11-17 06:17] LABS: ABS Basophils 0.1 10^3/ul (0-0.2); ABS Eosinophils 0.1 10^3/ul (0-0.6); ABS Monocytes 0.3 10^3/ul (0-0.8); ABS Neutrophils 5.9 10^3/ul (1.5-7.7); Eosinophil % 1.4 %; Hematocrit 24 % (42-52); Hemoglobin 7.7 g/dL (14.0-18.0); Lymphocyte % 13.8 %; Mean Corpuscular HGB Conc 32 g/dL (31-36); Mean Corpuscular Hemoglobin 25 pg (27-31); Mean Corpuscular Volume 77 fL (80-94); Mean Platelet Volume 7.6 fL (7.4-10.4); Nucleated Red Blood Cells % 0.1; Platelet Count 361 10^3/uL (150-450); Red Blood Count 3.15 10^6 /uL (4.18-5.48); Red Cell Distribution Width 19 % (10-15); White Blood Count 7.4 10^3/uL (3.5-10.8)
[2021-11-17 06:57] LABS: Magnesium 1.9 mg/dL (1.9-2.7); Phosphorus 3.4 mg/dL (2.5-5.0); Potassium 4.6 mmol/L (3.5-5.0); eGFR CKD-EPI 113.2 (>60)
[2021-11-17] MEDS: Pantoprazole VIAL 40 MG VIAL IV SCH (09:59)
[2021-11-17] MEDS: Folic Acid IV 1 MG in NS 0.9% 50 ML 50 ML IV SCH (09:59)
[2021-11-17] MEDS: Collagenase 250 units/gm OINT 1 tube TOPICAL SCH (10:09)
[2021-11-17] MEDS: Neomycin/Polym/Bacit TOP OINT 15 GM TOPICAL SCH ×3 (10:11→19:52)
[2021-11-17] MEDS ORDERED: Enoxaparin 60 MG/0.6 ML SYR SUBCUT SCH (12:00)
[2021-11-17] MEDS: Enoxaparin 60 MG/0.6 ML SYR SUBCUT SCH ×2 (12:56→22:59)
[2021-11-17] MEDS: Morphine 2 MG/ML SYRINGE IV PRN ×2 (17:25→22:59)
[2021-11-17] MEDS: oxyCODONE 5 mg/5 ml ORAL.SOLN UDC PEG TUBE PRN (19:52)
[2021-11-17] MEDS: Lansoprazole SUSP ORALSYR 3 MG/ML PEG TUBE SCH (22:58)
[2021-11-18] MEDS: Neomycin/Polym/Bacit TOP OINT 15 GM TOPICAL SCH ×3 (00:15→15:18)
[2021-11-18 06:00] LABS: ABS Basophils 0.1 10^3/ul (0-0.2); ABS Eosinophils 0.1 10^3/ul (0-0.6); ABS Lymphocytes 1.4 10^3/ul (1.0-4.8); ABS Monocytes 0.3 10^3/ul (0-0.8); ABS Neutrophils 5.8 10^3/ul (1.5-7.7); Eosinophil % 1.5 %; Hematocrit 23 % (42-52); Hemoglobin 7.5 g/dL (14.0-18.0); Lymphocyte % 18.5 %; Mean Corpuscular HGB Conc 32 g/dL (31-36); Mean Corpuscular Hemoglobin 25 pg (27-31); Mean Corpuscular Volume 77 fL (80-94); Mean Platelet Volume 7.9 fL (7.4-10.4); Nucleated Red Blood Cells % 0.1; Platelet Count 340 10^3/uL (150-450); Red Blood Count 3.03 10^6 /uL (4.18-5.48); Red Cell Distribution Width 20 % (10-15); White Blood Count 7.8 10^3/uL (3.5-10.8)
[2021-11-18 06:27] LABS: Potassium 4.4 mmol/L (3.5-5.0)
[2021-11-18 06:32] LABS: eGFR CKD-EPI 109.8 (>60)
[2021-11-18] MEDS: Lansoprazole SUSP ORALSYR 3 MG/ML PEG TUBE SCH ×2 (11:00→20:35)
[2021-11-18] MEDS: Enoxaparin 60 MG/0.6 ML SYR SUBCUT SCH (11:00)
[2021-11-18] MEDS: oxyCODONE 5 mg/5 ml ORAL.SOLN UDC PEG TUBE PRN ×2 (11:01→20:35)
[2021-11-18] MEDS: Collagenase 250 units/gm OINT 1 tube TOPICAL SCH (11:02)
[2021-11-18] MEDS: Morphine 2 MG/ML SYRINGE IV PRN (15:18)
[2021-11-19] MEDS: Enoxaparin 60 MG/0.6 ML SYR SUBCUT SCH ×2 (01:40→11:45)
[2021-11-19 06:47] LABS: ABS Eosinophils 0.1 10^3/ul (0-0.6); ABS Lymphocytes 1.1 10^3/ul (1.0-4.8); ABS Monocytes 0.4 10^3/ul (0-0.8); Eosinophil % 1.2 %; Hematocrit 23 % (42-52); Hemoglobin 7.5 g/dL (14.0-18.0); Lymphocyte % 16.6 %; Mean Corpuscular HGB Conc 33 g/dL (31-36); Mean Corpuscular Hemoglobin 25 pg (27-31); Mean Corpuscular Volume 77 fL (80-94); Mean Platelet Volume 7.9 fL (7.4-10.4); Nucleated Red Blood Cells % 0.1; Platelet Count 369 10^3/uL (150-450); Red Blood Count 2.98 10^6 /uL (4.18-5.48); Red Cell Distribution Width 20 % (10-15); White Blood Count 6.6 10^3/uL (3.5-10.8)
[2021-11-19 07:02] LABS: Calcium 8.1 mg/dL (8.6-10.3); Potassium 4.4 mmol/L (3.5-5.0); eGFR CKD-EPI 111.1 (>60)
[2021-11-19] MEDS: Neomycin/Polym/Bacit TOP OINT 15 GM TOPICAL SCH ×3 (08:39→22:46)
[2021-11-19] MEDS: Lansoprazole SUSP ORALSYR 3 MG/ML PEG TUBE SCH ×2 (08:39→22:46)
[2021-11-19] MEDS: oxyCODONE 5 mg/5 ml ORAL.SOLN UDC PEG TUBE PRN ×3 (08:39→22:45)
[2021-11-19] MEDS: Collagenase 250 units/gm OINT 1 tube TOPICAL SCH (08:40)
[2021-11-20] MEDS: Enoxaparin 60 MG/0.6 ML SYR SUBCUT SCH ×3 (01:31→23:04)
[2021-11-20] MEDS: oxyCODONE 5 mg/5 ml ORAL.SOLN UDC PEG TUBE PRN ×3 (05:48→20:55)
[2021-11-20 06:12] LABS: ABS Basophils 0.1 10^3/ul (0-0.2); ABS Eosinophils 0.1 10^3/ul (0-0.6); ABS Lymphocytes 1.3 10^3/ul (1.0-4.8); ABS Monocytes 0.4 10^3/ul (0-0.8); ABS Neutrophils 5.1 10^3/ul (1.5-7.7); Eosinophil % 1.3 %; Hematocrit 22 % (42-52); Hemoglobin 7.1 g/dL (14.0-18.0); Lymphocyte % 18.4 %; Mean Corpuscular HGB Conc 33 g/dL (31-36); Mean Corpuscular Hemoglobin 25 pg (27-31); Mean Corpuscular Volume 77 fL (80-94); Mean Platelet Volume 7.8 fL (7.4-10.4); Platelet Count 364 10^3/uL (150-450); Red Blood Count 2.79 10^6 /uL (4.18-5.48); Red Cell Distribution Width 20 % (10-15); White Blood Count 6.9 10^3/uL (3.5-10.8)
[2021-11-20 06:44] LABS: Rapid COVID-19 Molecular Undetected (Undetected)
[2021-11-20] MEDS: Collagenase 250 units/gm OINT 1 tube TOPICAL SCH (10:47)
[2021-11-20] MEDS: Neomycin/Polym/Bacit TOP OINT 15 GM TOPICAL SCH ×3 (10:47→21:37)
[2021-11-20] MEDS: Lansoprazole SUSP ORALSYR 3 MG/ML PEG TUBE SCH ×2 (10:48→20:55)
[2021-11-21 04:22] LABS: ABS Eosinophils 0.1 10^3/ul (0-0.6); ABS Lymphocytes 1.3 10^3/ul (1.0-4.8); ABS Monocytes 0.4 10^3/ul (0-0.8); ABS Neutrophils 5.4 10^3/ul (1.5-7.7); Eosinophil % 1.9 %; Hematocrit 25 % (42-52); Hemoglobin 8.2 g/dL (14.0-18.0); Lymphocyte % 17.7 %; Mean Corpuscular HGB Conc 33 g/dL (31-36); Mean Corpuscular Hemoglobin 26 pg (27-31); Mean Corpuscular Volume 78 fL (80-94); Mean Platelet Volume 8.1 fL (7.4-10.4); Platelet Count 352 10^3/uL (150-450); Red Blood Count 3.19 10^6 /uL (4.18-5.48); Red Cell Distribution Width 20 % (10-15); White Blood Count 7.3 10^3/uL (3.5-10.8)
[2021-11-21 04:49] LABS: Potassium 4.1 mmol/L (3.5-5.0)
[2021-11-21 04:50] LABS: Calcium 8.2 mg/dL (8.6-10.3); Magnesium 1.9 mg/dL (1.9-2.7); eGFR CKD-EPI 109.8 (>60)
[2021-11-21] MEDS: Lansoprazole SUSP ORALSYR 3 MG/ML PEG TUBE SCH ×2 (09:51→22:26)
[2021-11-21] MEDS: Neomycin/Polym/Bacit TOP OINT 15 GM TOPICAL SCH ×3 (09:51→22:26)
[2021-11-21] MEDS: Collagenase 250 units/gm OINT 1 tube TOPICAL SCH (09:51)
[2021-11-21] MEDS: oxyCODONE 5 mg/5 ml ORAL.SOLN UDC PEG TUBE PRN ×3 (12:42→22:26)
[2021-11-21] MEDS: Enoxaparin 60 MG/0.6 ML SYR SUBCUT SCH ×2 (12:43→22:25)
[2021-11-22] MEDS: Lansoprazole SUSP ORALSYR 3 MG/ML PEG TUBE SCH (07:53)
[2021-11-22] MEDS: Collagenase 250 units/gm OINT 1 tube TOPICAL SCH (07:53)
[2021-11-22] MEDS: Neomycin/Polym/Bacit TOP OINT 15 GM TOPICAL SCH ×2 (07:53→16:35)
[2021-11-22] MEDS: Enoxaparin 60 MG/0.6 ML SYR SUBCUT SCH (12:15)
[2021-11-22 12:19] VITALS: BP 111/47
== END 2021-11-22 17:45 | DRG 177 ==
LOC: ED 15:25 → SUATTDRO 21:19 → MEDTELE 21:19 → ED 22:33 → MED 11-15 22:48
PROVIDERS: ADMIT Internal Medicine; ATTEND Student in an Organized Health Care Education/Training Program
PROC: O.GIPEG (2021-11-16 15:15)

== ENCOUNTER 2021-11-28 13:43 | Inpatient (IN) ==
[2021-11-28] MEDS ORDERED: NS 0.9% 1000 ml BAG 1,000 ML IV ONE ×3 (14:52→20:50)
[2021-11-28] MEDS ORDERED: Piperacillin/Tazobac ADVAN 3.375 GM in NS 0.9% 100 ml BAG 100 ML IV ONE (14:55)
[2021-11-28 19:44] LABS: ABS Lymphocytes 0.9 10^3/ul (1.0-4.8); ABS Monocytes 0.7 10^3/ul (0-0.8); ABS Neutrophils 12.6 10^3/ul (1.5-7.7); Eosinophil % 0.1 %; Hematocrit 30 % (42-52); Hemoglobin 9.9 g/dL (14.0-18.0); Mean Corpuscular HGB Conc 33 g/dL (31-36); Mean Corpuscular Hemoglobin 26 pg (27-31); Mean Corpuscular Volume 77 fL (80-94); Mean Platelet Volume 7.9 fL (7.4-10.4); Platelet Count 419 10^3/uL (150-450); Red Blood Count 3.87 10^6 /uL (4.18-5.48); Red Cell Distribution Width 20 % (10-15); White Blood Count 14.2 10^3/uL (3.5-10.8)
[2021-11-28 19:57] LABS: Activated Partial Thrombo Time 42.1 seconds (26.0-38.0); INR 1.67 (0.86-1.15)
[2021-11-28 20:17] LABS: Albumin 3.2 g/dL (3.2-5.2); Albumin/Globulin Ratio 0.8 (1-3); Calcium 9.2 mg/dL (8.6-10.3); Globulin 3.9 g/dL (2-4); Magnesium 1.9 mg/dL (1.9-2.7); Potassium 4.4 mmol/L (3.5-5.0); Total Bilirubin 0.8 mg/dL (0.2-1.0); Total Protein 7.1 g/dL (6.4-8.9); eGFR CKD-EPI 103.5 (>60)
[2021-11-28 20:47] LABS: Urine Appearance Cloudy; Urine Color Red
[2021-11-28 20:49] LABS: Urine Specific Gravity 1.019 (1.002-1.030)
[2021-11-28 20:50] LABS: Urine Red Blood Cell 3+(>10/hpf) (Absent)
[2021-11-28 21:00] LABS: Urine Bacteria 2+ (Absent); Urine White Blood Cell 3+(>20/hpf) (Absent)
[2021-11-28 21:15] LABS: High Sensitivity Troponin 1 Hr 6 pg/mL (<20)
[2021-11-28] MEDS ORDERED: Azithromycin 500 mg/250 ml NS 500 MG/250 ML BAG IVPB ONE (22:58)
[2021-11-28] MEDS: Norepinephrine 16MCG/ML BAGD5W 4,000 MCG/250 ML BAG IV SCH (23:12)
[2021-11-29] MEDS: Norepinephrine 16MCG/ML BAGD5W 4,000 MCG/250 ML BAG IV SCH ×2 (00:56→14:54)
[2021-11-29 01:47] LABS: C Reactive Protein 144.49 mg/L (<8.01)
[2021-11-29] MEDS ORDERED: Norepinephrine 16MCG/ML BAGD5W 4,000 MCG/250 ML BAG IV SCH (02:00)
[2021-11-29] MEDS ORDERED: Zosyn per Pharmacy NOTE FOLLOW UP SCH (02:00)
[2021-11-29] MEDS ORDERED: ZOSYN 3.375 GM x ONE DOSE over 30 miuntes IV (02:30)
[2021-11-29] MEDS: NS 0.9% 1000 ml BAG 1,000 ML IV SCH ×3 (04:00→21:17)
[2021-11-29] MEDS: Collagenase 250 units/gm OINT 1 tube TOPICAL SCH ×2 (05:39→08:46)
[2021-11-29 07:06] LABS: ABS Basophils 0.1 10^3/ul (0-0.2); ABS Eosinophils 0.1 10^3/ul (0-0.6); ABS Lymphocytes 1.2 10^3/ul (1.0-4.8); ABS Monocytes 1.3 10^3/ul (0-0.8); ABS Neutrophils 14.5 10^3/ul (1.5-7.7); Eosinophil % 0.5 %; Hematocrit 26 % (42-52); Hemoglobin 8.8 g/dL (14.0-18.0); Lymphocyte % 7.2 %; Mean Corpuscular HGB Conc 34 g/dL (31-36); Mean Corpuscular Hemoglobin 27 pg (27-31); Mean Corpuscular Volume 77 fL (80-94); Mean Platelet Volume 7.5 fL (7.4-10.4); Platelet Count 445 10^3/uL (150-450); Red Blood Count 3.33 10^6 /uL (4.18-5.48); Red Cell Distribution Width 20 % (10-15); White Blood Count 17.1 10^3/uL (3.5-10.8)
[2021-11-29] MEDS: ZOSYN 3.375 GM Q8H per EXTENDED INFUSION IV SCH ×3 (07:34→22:42)
[2021-11-29 07:47] LABS: Calcium 8.9 mg/dL (8.6-10.3); Potassium 3.5 mmol/L (3.5-5.0); eGFR CKD-EPI 106.1 (>60)
[2021-11-29] MEDS: Lansoprazole SUSP ORALSYR 3 MG/ML PEG TUBE SCH (08:46)
[2021-11-30] MEDS: Norepinephrine 16MCG/ML BAGD5W 4,000 MCG/250 ML BAG IV SCH ×2 (01:19→17:38)
[2021-11-30 04:55] LABS: ABS Basophils 0.1 10^3/ul (0-0.2); ABS Eosinophils 0.4 10^3/ul (0-0.6); ABS Lymphocytes 1.3 10^3/ul (1.0-4.8); ABS Monocytes 1.1 10^3/ul (0-0.8); ABS Neutrophils 11.3 10^3/ul (1.5-7.7); Eosinophil % 2.6 %; Hematocrit 24 % (42-52); Hemoglobin 8.1 g/dL (14.0-18.0); Lymphocyte % 9.1 %; Mean Corpuscular HGB Conc 33 g/dL (31-36); Mean Corpuscular Hemoglobin 26 pg (27-31); Mean Corpuscular Volume 78 fL (80-94); Mean Platelet Volume 7.6 fL (7.4-10.4); Platelet Count 402 10^3/uL (150-450); Red Blood Count 3.14 10^6 /uL (4.18-5.48); Red Cell Distribution Width 20 % (10-15); White Blood Count 14.1 10^3/uL (3.5-10.8)
[2021-11-30] MEDS: NS 0.9% 1000 ml BAG 1,000 ML IV SCH ×2 (05:28→17:35)
[2021-11-30 05:51] LABS: Calcium 8.3 mg/dL (8.6-10.3); Magnesium 1.7 mg/dL (1.9-2.7); Phosphorus 2.4 mg/dL (2.5-5.0); Potassium 3.6 mmol/L (3.5-5.0); eGFR CKD-EPI 109.1 (>60)
[2021-11-30] MEDS: ZOSYN 3.375 GM Q8H per EXTENDED INFUSION IV SCH ×2 (07:45→16:12)
[2021-11-30] MEDS ORDERED: Magnesium Sulfate 2 gm BAG 2 GM/50 ML BAG IVPB ONE (07:47)
[2021-11-30] MEDS: Lansoprazole SUSP ORALSYR 3 MG/ML PEG TUBE SCH (09:30)
[2021-11-30] MEDS: Collagenase 250 units/gm OINT 1 tube TOPICAL SCH (09:31)
[2021-12-01] MEDS: ZOSYN 3.375 GM Q8H per EXTENDED INFUSION IV SCH ×4 (00:05→23:56)
[2021-12-01] MEDS: Norepinephrine 16MCG/ML BAGD5W 4,000 MCG/250 ML BAG IV SCH ×2 (06:01→23:56)
[2021-12-01 06:57] LABS: ABS Eosinophils 0.3 10^3/ul (0-0.6); ABS Lymphocytes 1.3 10^3/ul (1.0-4.8); ABS Monocytes 0.9 10^3/ul (0-0.8); ABS Neutrophils 9.4 10^3/ul (1.5-7.7); Eosinophil % 2.4 %; Hematocrit 25 % (42-52); Hemoglobin 8.4 g/dL (14.0-18.0); Lymphocyte % 10.7 %; Mean Corpuscular HGB Conc 34 g/dL (31-36); Mean Corpuscular Hemoglobin 26 pg (27-31); Mean Corpuscular Volume 78 fL (80-94); Mean Platelet Volume 7.5 fL (7.4-10.4); Platelet Count 429 10^3/uL (150-450); Red Blood Count 3.24 10^6 /uL (4.18-5.48); Red Cell Distribution Width 20 % (10-15); White Blood Count 11.8 10^3/uL (3.5-10.8)
[2021-12-01] MEDS: Lansoprazole SUSP ORALSYR 3 MG/ML PEG TUBE SCH (07:07)
[2021-12-01] MEDS: Collagenase 250 units/gm OINT 1 tube TOPICAL SCH (07:07)
[2021-12-01 07:18] LABS: Albumin 2.4 g/dL (3.2-5.2); Albumin/Globulin Ratio 0.8 (1-3); Calcium 8.1 mg/dL (8.6-10.3); Globulin 3.2 g/dL (2-4); Potassium 3.5 mmol/L (3.5-5.0); Total Bilirubin 0.3 mg/dL (0.2-1.0); Total Protein 5.6 g/dL (6.4-8.9); eGFR CKD-EPI 114.8 (>60)
[2021-12-01] MEDS: oxyCODONE 5 mg/5 ml ORAL.SOLN UDC PEG TUBE PRN ×3 (08:39→20:39)
[2021-12-01] MEDS ORDERED: NS 0.9% 100 ml BAG 100 ML ONE (23:54)
[2021-12-02] MEDS ORDERED: NS 0.9% 100 ml BAG 100 ML ONE (06:09)
[2021-12-02] MEDS: ZOSYN 3.375 GM Q8H per EXTENDED INFUSION IV SCH ×2 (06:11→16:26)
[2021-12-02] MEDS: oxyCODONE 5 mg/5 ml ORAL.SOLN UDC PEG TUBE PRN (08:34)
[2021-12-02 08:51] LABS: ABS Eosinophils 0.3 10^3/ul (0-0.6); ABS Lymphocytes 1.4 10^3/ul (1.0-4.8); ABS Monocytes 0.9 10^3/ul (0-0.8); ABS Neutrophils 7.4 10^3/ul (1.5-7.7); Eosinophil % 2.5 %; Hematocrit 26 % (42-52); Hemoglobin 8.4 g/dL (14.0-18.0); Lymphocyte % 13.7 %; Mean Corpuscular HGB Conc 33 g/dL (31-36); Mean Corpuscular Hemoglobin 25 pg (27-31); Mean Corpuscular Volume 77 fL (80-94); Mean Platelet Volume 7.1 fL (7.4-10.4); Platelet Count 415 10^3/uL (150-450); Red Blood Count 3.32 10^6 /uL (4.18-5.48); Red Cell Distribution Width 19 % (10-15); White Blood Count 9.9 10^3/uL (3.5-10.8)
[2021-12-02 09:33] LABS: Calcium 8.3 mg/dL (8.6-10.3); Magnesium 1.8 mg/dL (1.9-2.7); eGFR CKD-EPI 114.8 (>60)
[2021-12-02] MEDS: Collagenase 250 units/gm OINT 1 tube TOPICAL SCH (10:18)
[2021-12-02] MEDS: Lansoprazole SUSP ORALSYR 3 MG/ML PEG TUBE SCH (10:19)
[2021-12-02] MEDS ORDERED: Magnesium Sulfate IV 1GM/100ML 1 GM/100 ML BAG IV ONE (10:43)
[2021-12-02] MEDS: Norepinephrine 16MCG/ML BAGD5W 4,000 MCG/250 ML BAG IV SCH (20:07)
[2021-12-03 04:12] LABS: ABS Basophils 0.1 10^3/ul (0-0.2); ABS Eosinophils 0.2 10^3/ul (0-0.6); ABS Lymphocytes 1.5 10^3/ul (1.0-4.8); ABS Monocytes 0.8 10^3/ul (0-0.8); ABS Neutrophils 8.3 10^3/ul (1.5-7.7); Eosinophil % 1.5 %; Hematocrit 25 % (42-52); Hemoglobin 8.2 g/dL (14.0-18.0); Lymphocyte % 13.8 %; Mean Corpuscular HGB Conc 33 g/dL (31-36); Mean Corpuscular Hemoglobin 26 pg (27-31); Mean Corpuscular Volume 78 fL (80-94); Mean Platelet Volume 7.4 fL (7.4-10.4); Nucleated Red Blood Cells % 0.1; Platelet Count 433 10^3/uL (150-450); Red Blood Count 3.19 10^6 /uL (4.18-5.48); Red Cell Distribution Width 19 % (10-15); White Blood Count 10.8 10^3/uL (3.5-10.8)
[2021-12-03 04:34] LABS: Albumin 2.5 g/dL (3.2-5.2); Albumin/Globulin Ratio 0.8 (1-3); Calcium 8.4 mg/dL (8.6-10.3); Globulin 3.1 g/dL (2-4); Magnesium 1.9 mg/dL (1.9-2.7); Total Bilirubin 0.3 mg/dL (0.2-1.0); Total Protein 5.6 g/dL (6.4-8.9); eGFR CKD-EPI 110.4 (>60)
[2021-12-03] MEDS ORDERED: Magnesium Sulfate IV 1GM/100ML 1 GM/100 ML BAG IV ONE (05:04)
[2021-12-03] MEDS: ZOSYN 3.375 GM Q8H per EXTENDED INFUSION IV SCH ×4 (07:08→23:39)
[2021-12-03] MEDS: Lansoprazole SUSP ORALSYR 3 MG/ML PEG TUBE SCH (07:56)
[2021-12-03] MEDS: Collagenase 250 units/gm OINT 1 tube TOPICAL SCH (07:57)
[2021-12-03] MEDS: Norepinephrine 16MCG/ML BAGD5W 4,000 MCG/250 ML BAG IV SCH (13:08)
[2021-12-03] MEDS: Hydrocortisone INJ 100 MG/2ML 2 ML VIAL IV SCH (17:57)
[2021-12-04] MEDS: Hydrocortisone INJ 100 MG/2ML 2 ML VIAL IV SCH ×3 (02:10→18:12)
[2021-12-04 05:09] LABS: ABS Lymphocytes 0.8 10^3/ul (1.0-4.8); ABS Monocytes 0.2 10^3/ul (0-0.8); ABS Neutrophils 13.2 10^3/ul (1.5-7.7); Hematocrit 28 % (42-52); Hemoglobin 9.3 g/dL (14.0-18.0); Lymphocyte % 5.9 %; Mean Corpuscular HGB Conc 33 g/dL (31-36); Mean Corpuscular Hemoglobin 26 pg (27-31); Mean Corpuscular Volume 79 fL (80-94); Mean Platelet Volume 7.7 fL (7.4-10.4); Platelet Count 483 10^3/uL (150-450); Red Blood Count 3.61 10^6 /uL (4.18-5.48); Red Cell Distribution Width 20 % (10-15); White Blood Count 14.3 10^3/uL (3.5-10.8)
[2021-12-04 05:50] LABS: Calcium 8.9 mg/dL (8.6-10.3); Magnesium 2.1 mg/dL (1.9-2.7); Potassium 4.3 mmol/L (3.5-5.0); eGFR CKD-EPI 106.7 (>60)
[2021-12-04] MEDS: ZOSYN 3.375 GM Q8H per EXTENDED INFUSION IV SCH ×3 (08:00→23:19)
[2021-12-04] MEDS: Lansoprazole SUSP ORALSYR 3 MG/ML PEG TUBE SCH (09:48)
[2021-12-04] MEDS: Collagenase 250 units/gm OINT 1 tube TOPICAL SCH (09:49)
[2021-12-04] MEDS: Norepinephrine 16MCG/ML BAGD5W 4,000 MCG/250 ML BAG IV SCH (12:45)
[2021-12-05] MEDS: Hydrocortisone INJ 100 MG/2ML 2 ML VIAL IV SCH ×3 (01:41→17:14)
[2021-12-05 04:54] LABS: ABS Lymphocytes 1.2 10^3/ul (1.0-4.8); ABS Monocytes 0.4 10^3/ul (0-0.8); ABS Neutrophils 13.2 10^3/ul (1.5-7.7); Hematocrit 27 % (42-52); Hemoglobin 8.7 g/dL (14.0-18.0); Lymphocyte % 8.3 %; Mean Corpuscular HGB Conc 33 g/dL (31-36); Mean Corpuscular Hemoglobin 26 pg (27-31); Mean Corpuscular Volume 78 fL (80-94); Platelet Count 413 10^3/uL (150-450); Red Blood Count 3.39 10^6 /uL (4.18-5.48); Red Cell Distribution Width 20 % (10-15); White Blood Count 14.9 10^3/uL (3.5-10.8)
[2021-12-05 06:02] LABS: Albumin 2.6 g/dL (3.2-5.2)
[2021-12-05 06:03] LABS: Calcium 8.7 mg/dL (8.6-10.3); Potassium 3.9 mmol/L (3.5-5.0); Total Bilirubin 0.2 mg/dL (0.2-1.0)
[2021-12-05 06:08] LABS: Albumin/Globulin Ratio 0.7 (1-3); Globulin 3.5 g/dL (2-4); Total Protein 6.1 g/dL (6.4-8.9)
[2021-12-05 06:14] LABS: eGFR CKD-EPI 106.1 (>60)
[2021-12-05] MEDS: ZOSYN 3.375 GM Q8H per EXTENDED INFUSION IV SCH ×3 (09:32→23:43)
[2021-12-05] MEDS: Collagenase 250 units/gm OINT 1 tube TOPICAL SCH (09:35)
[2021-12-05] MEDS: Lansoprazole SUSP ORALSYR 3 MG/ML PEG TUBE SCH (10:19)
[2021-12-06] MEDS: Hydrocortisone INJ 100 MG/2ML 2 ML VIAL IV SCH ×3 (01:41→18:04)
[2021-12-06 06:07] LABS: Calcium 8.7 mg/dL (8.6-10.3); Potassium 3.6 mmol/L (3.5-5.0); eGFR CKD-EPI 109.8 (>60)
[2021-12-06 06:42] LABS: ABS Lymphocytes 1.2 10^3/ul (1.0-4.8); ABS Monocytes 0.4 10^3/ul (0-0.8); ABS Neutrophils 11.6 10^3/ul (1.5-7.7); Hematocrit 28 % (42-52); Hemoglobin 8.8 g/dL (14.0-18.0); Lymphocyte % 8.8 %; Mean Corpuscular HGB Conc 32 g/dL (31-36); Mean Corpuscular Hemoglobin 25 pg (27-31); Mean Corpuscular Volume 79 fL (80-94); Mean Platelet Volume 8.5 fL (7.4-10.4); Platelet Count 406 10^3/uL (150-450); Red Blood Count 3.49 10^6 /uL (4.18-5.48); Red Cell Distribution Width 20 % (10-15); White Blood Count 13.2 10^3/uL (3.5-10.8)
[2021-12-06] MEDS: ZOSYN 3.375 GM Q8H per EXTENDED INFUSION IV SCH (09:16)
[2021-12-06] MEDS: Collagenase 250 units/gm OINT 1 tube TOPICAL SCH (09:24)
[2021-12-06] MEDS: Lansoprazole SUSP ORALSYR 3 MG/ML PEG TUBE SCH (09:25)
[2021-12-06 14:00] LABS: C Reactive Protein 14.77 mg/L (<8.01)
[2021-12-07] MEDS: Hydrocortisone INJ 100 MG/2ML 2 ML VIAL IV SCH ×3 (03:00→17:27)
[2021-12-07 06:15] LABS: ABS Lymphocytes 1.5 10^3/ul (1.0-4.8); ABS Monocytes 0.5 10^3/ul (0-0.8); ABS Neutrophils 11.7 10^3/ul (1.5-7.7); Hematocrit 28 % (42-52); Lymphocyte % 10.9 %; Mean Corpuscular HGB Conc 33 g/dL (31-36); Mean Corpuscular Hemoglobin 26 pg (27-31); Mean Corpuscular Volume 78 fL (80-94); Mean Platelet Volume 7.8 fL (7.4-10.4); Platelet Count 397 10^3/uL (150-450); Red Blood Count 3.53 10^6 /uL (4.18-5.48); Red Cell Distribution Width 20 % (10-15); White Blood Count 13.7 10^3/uL (3.5-10.8)
[2021-12-07] MEDS: Collagenase 250 units/gm OINT 1 tube TOPICAL SCH (11:00)
[2021-12-07] MEDS ORDERED: fentaNYL 100 mcg/2 ml 50 MCG/ML VIAL ONE (14:37)
[2021-12-07] MEDS ORDERED: Flumazenil 0.5 mg/5 ml 0.1 MG/ML 5 ml VIAL ONE (14:37)
[2021-12-07] MEDS ORDERED: Midazolam 5 mg/5 ml VIAL 1 mg/ml 5 ml VIAL (5 mg) ONE (14:37)
[2021-12-07] MEDS ORDERED: Naloxone 0.4 mg VIAL 0.4 mg/ml 1 ml VIAL ONE (14:37)
[2021-12-07] MEDS: Lansoprazole SUSP ORALSYR 3 MG/ML PEG TUBE SCH (16:20)
[2021-12-07 23:01] LABS: Urine Appearance Cloudy; Urine Bilirubin Negative (Negative); Urine Blood 3+ (Negative); Urine Color Yellow; Urine Glucose Negative (Negative); Urine Ketones Negative (Negative); Urine Nitrite Negative (Negative); Urine Protein 1+(30 mg/dL) (Negative); Urine Specific Gravity 1.018 (1.002-1.030); Urine Urobilinogen Negative (Negative)
[2021-12-07 23:04] LABS: Urine Bacteria Absent (Absent); Urine Red Blood Cell 3+(>10/hpf) (Absent); Urine White Blood Cell 1+(6-10/hpf) (Absent)
[2021-12-08] MEDS: Hydrocortisone INJ 100 MG/2ML 2 ML VIAL IV SCH ×3 (02:24→21:50)
[2021-12-08 08:34] LABS: ABS Lymphocytes 1.4 10^3/ul (1.0-4.8); ABS Monocytes 0.5 10^3/ul (0-0.8); ABS Neutrophils 14.3 10^3/ul (1.5-7.7); Hematocrit 29 % (42-52); Hemoglobin 9.7 g/dL (14.0-18.0); Lymphocyte % 8.7 %; Mean Corpuscular HGB Conc 34 g/dL (31-36); Mean Corpuscular Hemoglobin 26 pg (27-31); Mean Corpuscular Volume 78 fL (80-94); Mean Platelet Volume 7.4 fL (7.4-10.4); Platelet Count 377 10^3/uL (150-450); Red Blood Count 3.66 10^6 /uL (4.18-5.48); Red Cell Distribution Width 20 % (10-15); White Blood Count 16.2 10^3/uL (3.5-10.8)
[2021-12-08] MEDS: Collagenase 250 units/gm OINT 1 tube TOPICAL SCH (09:01)
[2021-12-08 09:32] LABS: Calcium 8.8 mg/dL (8.6-10.3); Magnesium 2.1 mg/dL (1.9-2.7); Potassium 3.6 mmol/L (3.5-5.0); eGFR CKD-EPI 114.8 (>60)
[2021-12-08] MEDS: Lansoprazole SUSP ORALSYR 3 MG/ML PEG TUBE SCH (10:40)
[2021-12-08] MEDS ORDERED: Succinylcholine 200 mg VIAL 20 mg/ml 10 ml VIAL (200 mg) ONE (13:55)
[2021-12-08] MEDS ORDERED: Rocuronium 50 mg VIAL 10 mg/ml 5 ml VIAL (50 mg) ONE (13:56)
[2021-12-08] MEDS ORDERED: fentaNYL 100 mcg/2 ml 50 MCG/ML VIAL ONE (13:57)
[2021-12-08] MEDS ORDERED: Lidocaine 1% 50 ML MDV VIAL ONE (14:27)
[2021-12-08] MEDS ORDERED: Sugammadex 500 MG/5 ML 5 ml VIAL IV PUSH ONE (14:55)
[2021-12-09 08:15] LABS: ABS Eosinophils 0.1 10^3/ul (0-0.6); ABS Lymphocytes 1.7 10^3/ul (1.0-4.8); ABS Monocytes 0.5 10^3/ul (0-0.8); ABS Neutrophils 11.3 10^3/ul (1.5-7.7); Eosinophil % 0.4 %; Hematocrit 27 % (42-52); Hemoglobin 8.9 g/dL (14.0-18.0); Lymphocyte % 12.9 %; Mean Corpuscular HGB Conc 34 g/dL (31-36); Mean Corpuscular Hemoglobin 26 pg (27-31); Mean Corpuscular Volume 79 fL (80-94); Mean Platelet Volume 7.6 fL (7.4-10.4); Nucleated Red Blood Cells % 0.1; Platelet Count 370 10^3/uL (150-450); Red Blood Count 3.38 10^6 /uL (4.18-5.48); Red Cell Distribution Width 20 % (10-15); White Blood Count 13.6 10^3/uL (3.5-10.8)
[2021-12-09] MEDS ORDERED: Vancomycin per Pharmacy 1 EA NOTE FOLLOW UP PRN (09:33)
[2021-12-09] MEDS: Collagenase 250 units/gm OINT 1 tube TOPICAL SCH (09:52)
[2021-12-09] MEDS: Hydrocortisone INJ 100 MG/2ML 2 ML VIAL IV SCH (09:52)
[2021-12-09] MEDS: Lansoprazole SUSP ORALSYR 3 MG/ML PEG TUBE SCH (09:53)
[2021-12-09] MEDS ORDERED: Vancomycin 1000 MG in NS 0.9% 250 ML IVPB ONE (10:00)
[2021-12-09] MEDS ORDERED: Vancomycin 1,000 MG in NS 0.9% 250 ml 250 ML IVPB SCH (18:00)
[2021-12-09] MEDS ORDERED: Enoxaparin 40 MG/0.4 ML SYR SUBCUT SCH (21:00)
[2021-12-09] MEDS: Enoxaparin 80 MG/0.8 ML SYR SUBCUT SCH (21:35)
[2021-12-10 07:15] LABS: ABS Eosinophils 0.1 10^3/ul (0-0.6); ABS Lymphocytes 1.9 10^3/ul (1.0-4.8); ABS Monocytes 0.4 10^3/ul (0-0.8); ABS Neutrophils 10.4 10^3/ul (1.5-7.7); Eosinophil % 0.6 %; Hematocrit 27 % (42-52); Lymphocyte % 14.6 %; Mean Corpuscular HGB Conc 33 g/dL (31-36); Mean Corpuscular Hemoglobin 26 pg (27-31); Mean Corpuscular Volume 78 fL (80-94); Mean Platelet Volume 7.6 fL (7.4-10.4); Platelet Count 336 10^3/uL (150-450); Red Blood Count 3.46 10^6 /uL (4.18-5.48); Red Cell Distribution Width 20 % (10-15); White Blood Count 12.8 10^3/uL (3.5-10.8)
[2021-12-10 07:48] LABS: Calcium 8.6 mg/dL (8.6-10.3); Potassium 3.4 mmol/L (3.5-5.0); eGFR CKD-EPI 118.1 (>60)
[2021-12-10] MEDS: Enoxaparin 80 MG/0.8 ML SYR SUBCUT SCH ×2 (09:38→20:37)
[2021-12-10] MEDS: KCL 20 MEQ/100 ML IVPREMIX 20 MEQ/100 ML BAG IV SCH ×2 (09:38→14:03)
[2021-12-10] MEDS: Lansoprazole SUSP ORALSYR 3 MG/ML PEG TUBE SCH (09:38)
[2021-12-10] MEDS: Collagenase 250 units/gm OINT 1 tube TOPICAL SCH (11:20)
[2021-12-10] MEDS: Hydrocortisone INJ 100 MG/2ML 2 ML VIAL IV SCH (14:28)
[2021-12-11 06:30] LABS: ABS Eosinophils 0.1 10^3/ul (0-0.6); ABS Lymphocytes 1.8 10^3/ul (1.0-4.8); ABS Monocytes 0.4 10^3/ul (0-0.8); ABS Neutrophils 9.2 10^3/ul (1.5-7.7); Eosinophil % 0.6 %; Hematocrit 25 % (42-52); Hemoglobin 8.3 g/dL (14.0-18.0); Lymphocyte % 15.9 %; Mean Corpuscular HGB Conc 33 g/dL (31-36); Mean Corpuscular Hemoglobin 26 pg (27-31); Mean Corpuscular Volume 79 fL (80-94); Mean Platelet Volume 8.3 fL (7.4-10.4); Platelet Count 295 10^3/uL (150-450); Red Blood Count 3.21 10^6 /uL (4.18-5.48); Red Cell Distribution Width 21 % (10-15); White Blood Count 11.5 10^3/uL (3.5-10.8)
[2021-12-11 06:58] LABS: Calcium 8.2 mg/dL (8.6-10.3); Potassium 3.5 mmol/L (3.5-5.0); eGFR CKD-EPI 116.4 (>60)
[2021-12-11] MEDS: Lansoprazole SUSP ORALSYR 3 MG/ML PEG TUBE SCH (08:32)
[2021-12-11] MEDS: Hydrocortisone INJ 100 MG/2ML 2 ML VIAL IV SCH (08:33)
[2021-12-11] MEDS: Enoxaparin 80 MG/0.8 ML SYR SUBCUT SCH (08:33)
[2021-12-11] MEDS: Collagenase 250 units/gm OINT 1 tube TOPICAL SCH (16:33)
[2021-12-12 05:35] LABS: ABS Eosinophils 0.1 10^3/ul (0-0.6); ABS Lymphocytes 1.8 10^3/ul (1.0-4.8); ABS Monocytes 0.4 10^3/ul (0-0.8); ABS Neutrophils 8.7 10^3/ul (1.5-7.7); Eosinophil % 0.9 %; Hematocrit 28 % (42-52); Lymphocyte % 15.9 %; Mean Corpuscular HGB Conc 32 g/dL (31-36); Mean Corpuscular Hemoglobin 26 pg (27-31); Mean Corpuscular Volume 79 fL (80-94); Mean Platelet Volume 7.7 fL (7.4-10.4); Nucleated Red Blood Cells % 0.1; Platelet Count 275 10^3/uL (150-450); Red Blood Count 3.52 10^6 /uL (4.18-5.48); Red Cell Distribution Width 21 % (10-15)
[2021-12-12 08:14] LABS: Calcium 8.4 mg/dL (8.6-10.3); Magnesium 2.1 mg/dL (1.9-2.7); Potassium 4.4 mmol/L (3.5-5.0)
[2021-12-12 08:20] LABS: eGFR CKD-EPI 117.2 (>60)
[2021-12-12] MEDS: Lansoprazole SUSP ORALSYR 3 MG/ML PEG TUBE SCH (09:00)
[2021-12-12] MEDS: Hydrocortisone INJ 100 MG/2ML 2 ML VIAL IV SCH (09:56)
[2021-12-12] MEDS ORDERED: Hydrocortisone INJ 100 MG/2ML 2 ML VIAL IV ONE (10:32)
[2021-12-12] MEDS ORDERED: NS 0.9% 1000 ml BAG 1,000 ML IV ONE (10:32)
[2021-12-12 13:19] LABS: TB1 Ag minus Nil Result -0.01 IU/mL; TB2 Ag minus Nil Result -0.01 IU/mL
[2021-12-12 13:25] LABS: QuantiferonTb Gold Plus Result Negative (Negative)
[2021-12-12] MEDS ORDERED: Heparin DRIP 25,000 UNITS BAG 25,000 UNITS/500 ML BAG IV SCH (15:30)
[2021-12-12] MEDS ORDERED: Heparin 5000 UNITS/ML 1 mL VIAL IV SCH (16:00)
[2021-12-12 16:17] LABS: ABS Eosinophils 0.1 10^3/ul (0-0.6); ABS Lymphocytes 1.2 10^3/ul (1.0-4.8); ABS Monocytes 0.3 10^3/ul (0-0.8); ABS Neutrophils 10.2 10^3/ul (1.5-7.7); Eosinophil % 0.4 %; Hematocrit 30 % (42-52); Hemoglobin 9.6 g/dL (14.0-18.0); Lymphocyte % 10.2 %; Mean Corpuscular HGB Conc 32 g/dL (31-36); Mean Corpuscular Hemoglobin 26 pg (27-31); Mean Corpuscular Volume 79 fL (80-94); Mean Platelet Volume 7.9 fL (7.4-10.4); Platelet Count 296 10^3/uL (150-450); Red Blood Count 3.77 10^6 /uL (4.18-5.48); Red Cell Distribution Width 21 % (10-15); White Blood Count 11.8 10^3/uL (3.5-10.8)
[2021-12-12] MEDS: Collagenase 250 units/gm OINT 1 tube TOPICAL SCH (17:13)
[2021-12-12 17:37] LABS: eGFR CKD-EPI 114.8 (>60)
[2021-12-13 05:24] LABS: ABS Basophils 0.1 10^3/ul (0-0.2); ABS Eosinophils 0.1 10^3/ul (0-0.6); ABS Lymphocytes 1.9 10^3/ul (1.0-4.8); ABS Monocytes 0.4 10^3/ul (0-0.8); ABS Neutrophils 7.3 10^3/ul (1.5-7.7); Hematocrit 25 % (42-52); Hemoglobin 8.1 g/dL (14.0-18.0); Lymphocyte % 19.5 %; Mean Corpuscular HGB Conc 33 g/dL (31-36); Mean Corpuscular Hemoglobin 26 pg (27-31); Mean Corpuscular Volume 80 fL (80-94); Mean Platelet Volume 8.3 fL (7.4-10.4); Platelet Count 263 10^3/uL (150-450); Red Blood Count 3.08 10^6 /uL (4.18-5.48); Red Cell Distribution Width 21 % (10-15); White Blood Count 9.9 10^3/uL (3.5-10.8)
[2021-12-13 05:57] LABS: Calcium 8.3 mg/dL (8.6-10.3); Potassium 3.7 mmol/L (3.5-5.0); eGFR CKD-EPI 112.5 (>60)
[2021-12-13 08:57] LABS: C Reactive Protein 10.74 mg/L (<8.01)
[2021-12-13] MEDS ORDERED: Hydrocortisone INJ 100 MG/2ML 2 ML VIAL IV SCH (09:00)
[2021-12-13] MEDS: Lansoprazole SUSP ORALSYR 3 MG/ML PEG TUBE SCH (10:37)
[2021-12-13] MEDS: Collagenase 250 units/gm OINT 1 tube TOPICAL SCH (17:45)
[2021-12-13] MEDS ORDERED: NS 0.9% 1000 ml BAG 1,000 ML IV ONE (20:32)
[2021-12-13] MEDS: Acetaminophen IV 1 GM/100ML 100 ML IV PRN (21:38)
[2021-12-14 06:53] LABS: ABS Eosinophils 0.1 10^3/ul (0-0.6); ABS Lymphocytes 1.9 10^3/ul (1.0-4.8); ABS Monocytes 0.4 10^3/ul (0-0.8); Eosinophil % 0.7 %; Hematocrit 25 % (42-52); Hemoglobin 8.2 g/dL (14.0-18.0); Lymphocyte % 26.1 %; Mean Corpuscular HGB Conc 33 g/dL (31-36); Mean Corpuscular Hemoglobin 26 pg (27-31); Mean Corpuscular Volume 80 fL (80-94); Mean Platelet Volume 8.9 fL (7.4-10.4); Platelet Count 227 10^3/uL (150-450); Red Blood Count 3.14 10^6 /uL (4.18-5.48); Red Cell Distribution Width 21 % (10-15); White Blood Count 7.5 10^3/uL (3.5-10.8)
[2021-12-14 07:11] LABS: Calcium 8.2 mg/dL (8.6-10.3); Potassium 3.3 mmol/L (3.5-5.0); eGFR CKD-EPI 117.2 (>60)
[2021-12-14] MEDS ORDERED: Hydrocortisone INJ 100 MG/2ML 2 ML VIAL IV SCH (09:00)
[2021-12-14] MEDS: Lansoprazole SUSP ORALSYR 3 MG/ML PEG TUBE SCH (09:21)
[2021-12-14] MEDS: Collagenase 250 units/gm OINT 1 tube TOPICAL SCH (12:42)
[2021-12-14] MEDS ORDERED: Potassium Chloride LIQUID 20 MEQ/15 ML LIQUID PO ONE (13:28)
[2021-12-14 13:52] LABS: Magnesium 1.9 mg/dL (1.9-2.7)
[2021-12-15 06:20] LABS: Hematocrit 26 % (42-52); Hemoglobin 8.5 g/dL (14.0-18.0); Mean Corpuscular HGB Conc 33 g/dL (31-36); Mean Corpuscular Hemoglobin 26 pg (27-31); Mean Corpuscular Volume 80 fL (80-94); Mean Platelet Volume 9.4 fL (7.4-10.4); Platelet Count 196 10^3/uL (150-450); Red Blood Count 3.23 10^6 /uL (4.18-5.48); Red Cell Distribution Width 22 % (10-15); White Blood Count 9.3 10^3/uL (3.5-10.8)
[2021-12-15 06:44] LABS: Calcium 8.3 mg/dL (8.6-10.3); Potassium 3.7 mmol/L (3.5-5.0)
[2021-12-15 08:00] LABS: Magnesium 1.9 mg/dL (1.9-2.7)
[2021-12-15] MEDS: Enoxaparin 80 MG/0.8 ML SYR SUBCUT SCH ×2 (09:27→22:45)
[2021-12-15] MEDS: Lansoprazole SUSP ORALSYR 3 MG/ML PEG TUBE SCH (09:29)
[2021-12-15] MEDS: Collagenase 250 units/gm OINT 1 tube TOPICAL SCH (09:31)
[2021-12-16 06:44] LABS: Calcium 8.2 mg/dL (8.6-10.3); Magnesium 1.9 mg/dL (1.9-2.7); Potassium 3.7 mmol/L (3.5-5.0)
[2021-12-16] MEDS: Lansoprazole SUSP ORALSYR 3 MG/ML PEG TUBE SCH (08:12)
[2021-12-16] MEDS: Collagenase 250 units/gm OINT 1 tube TOPICAL SCH (08:13)
[2021-12-16] MEDS ORDERED: fentaNYL 100 mcg/2 ml 50 MCG/ML VIAL ONE (11:40)
[2021-12-16] MEDS ORDERED: Phenylephrine IV 10 MG/ML 1 ml VIAL ONE (13:00)
[2021-12-16] MEDS ORDERED: Etomidate 40 mg/20 ml (2 MG/ML) 20 ml VIAL (40 mg) ONE (13:00)
[2021-12-16] MEDS ORDERED: Lidocaine 1% MPF 2 ML VIAL ONE (13:00)
[2021-12-16] MEDS ORDERED: Rocuronium 50 mg VIAL 10 mg/ml 5 ml VIAL (50 mg) ONE (14:56)
[2021-12-16] MEDS ORDERED: Magnesium Sulfate 2 gm BAG 2 GM/50 ML BAG IVPB ONE (17:10)
[2021-12-17 08:25] LABS: Hematocrit 28 % (42-52); Mean Corpuscular HGB Conc 32 g/dL (31-36); Mean Corpuscular Hemoglobin 26 pg (27-31); Mean Corpuscular Volume 80 fL (80-94); Mean Platelet Volume 9.1 fL (7.4-10.4); Platelet Count 222 10^3/uL (150-450); Red Blood Count 3.52 10^6 /uL (4.18-5.48); Red Cell Distribution Width 22 % (10-15)
[2021-12-17 08:30] LABS: ABS Eosinophils 0.1 10^3/ul (0-0.6); ABS Lymphocytes 1.1 10^3/ul (1.0-4.8); ABS Monocytes 0.6 10^3/ul (0-0.8); ABS Neutrophils 12.2 10^3/ul (1.5-7.7); Eosinophil % 0.5 %; Lymphocyte % 7.9 %
[2021-12-17 08:49] LABS: Calcium 8.6 mg/dL (8.6-10.3); Magnesium 2.2 mg/dL (1.9-2.7); Potassium 4.1 mmol/L (3.5-5.0); eGFR CKD-EPI 113.2 (>60)
[2021-12-17] MEDS: Lansoprazole SUSP ORALSYR 3 MG/ML PEG TUBE SCH (09:13)
[2021-12-17] MEDS: Acetaminophen IV 1 GM/100ML 100 ML IV PRN ×2 (09:22→23:22)
[2021-12-17] MEDS: Collagenase 250 units/gm OINT 1 tube TOPICAL SCH (12:40)
[2021-12-18] MEDS ORDERED: oxyCODONE 5 mg/5 ml ORAL.SOLN UDC G TUBE ONE (06:10)
[2021-12-18] MEDS: Lansoprazole SUSP ORALSYR 3 MG/ML PEG TUBE SCH (09:44)
[2021-12-18] MEDS: Collagenase 250 units/gm OINT 1 tube TOPICAL SCH (09:44)
[2021-12-18] MEDS: Dakins Solution 0.25% (1/2 STR.) 473 ML BTL TOPICAL SCH (09:46)
[2021-12-18] MEDS: Acetaminophen IV 1 GM/100ML 100 ML IV PRN (14:20)
[2021-12-19] MEDS: Acetaminophen IV 1 GM/100ML 100 ML IV PRN (05:06)
[2021-12-19] MEDS: Lansoprazole SUSP ORALSYR 3 MG/ML PEG TUBE SCH (09:39)
[2021-12-19 12:21] LABS: Hematocrit 27 % (42-52); Hemoglobin 8.8 g/dL (14.0-18.0); Mean Corpuscular HGB Conc 32 g/dL (31-36); Mean Corpuscular Hemoglobin 26 pg (27-31); Mean Corpuscular Volume 80 fL (80-94); Mean Platelet Volume 9.2 fL (7.4-10.4); Platelet Count 211 10^3/uL (150-450); Red Blood Count 3.41 10^6 /uL (4.18-5.48); Red Cell Distribution Width 22 % (10-15); White Blood Count 11.4 10^3/uL (3.5-10.8)
[2021-12-19 12:52] LABS: Calcium 8.5 mg/dL (8.6-10.3); Potassium 4.2 mmol/L (3.5-5.0)
[2021-12-19] MEDS: Dakins Solution 0.25% (1/2 STR.) 473 ML BTL TOPICAL SCH (13:06)
[2021-12-19] MEDS: Collagenase 250 units/gm OINT 1 tube TOPICAL SCH (13:06)
[2021-12-19 13:22] LABS: ABS Eosinophils 0.1 10^3/ul (0-0.6); ABS Lymphocytes 0.7 10^3/ul (1.0-4.8); ABS Monocytes 0.5 10^3/ul (0-0.8); ABS Neutrophils 10.1 10^3/ul (1.5-7.7); Eosinophil % 0.5 %; Lymphocyte % 5.8 %
[2021-12-19 16:11] LABS: C Reactive Protein 68.12 mg/L (<8.01)
[2021-12-20] MEDS: Lansoprazole SUSP ORALSYR 3 MG/ML PEG TUBE SCH (07:49)
[2021-12-20 08:07] LABS: ABS Eosinophils 0.2 10^3/ul (0-0.6); ABS Lymphocytes 1.1 10^3/ul (1.0-4.8); ABS Monocytes 0.5 10^3/ul (0-0.8); Eosinophil % 1.7 %; Hematocrit 27 % (42-52); Hemoglobin 8.9 g/dL (14.0-18.0); Mean Corpuscular HGB Conc 33 g/dL (31-36); Mean Corpuscular Hemoglobin 27 pg (27-31); Mean Corpuscular Volume 81 fL (80-94); Mean Platelet Volume 8.8 fL (7.4-10.4); Platelet Count 212 10^3/uL (150-450); Red Blood Count 3.31 10^6 /uL (4.18-5.48); Red Cell Distribution Width 21 % (10-15); White Blood Count 9.8 10^3/uL (3.5-10.8)
[2021-12-20 15:20] LABS: Rapid COVID-19 Molecular Undetected (Undetected)
[2021-12-20] MEDS: Collagenase 250 units/gm OINT 1 tube TOPICAL SCH (16:13)
[2021-12-20] MEDS: Dakins Solution 0.25% (1/2 STR.) 473 ML BTL TOPICAL SCH (16:13)
[2021-12-20 17:20] LABS: Urine Appearance Slightly Cloudy; Urine Bilirubin Negative (Negative); Urine Blood 3+ (Large) (Negative); Urine Color Red; Urine Glucose Negative (Negative); Urine Ketones Negative (Negative); Urine Nitrite Negative (Negative); Urine Protein Negative (Negative); Urine Urobilinogen 0.2 (Negative) (Negative); Urine pH 8.5 (5.0-9.0)
[2021-12-20 17:27] LABS: Urine Bacteria 1+ (Absent); Urine Red Blood Cell 3+(>10/hpf) (Absent); Urine Squamous Epithelial Cell Present (Absent); Urine White Blood Cell 3+(>20/hpf) (Absent)
[2021-12-21] MEDS: Lansoprazole SUSP ORALSYR 3 MG/ML PEG TUBE SCH (08:59)
[2021-12-21] MEDS: Collagenase 250 units/gm OINT 1 tube TOPICAL SCH ×2 (10:00→10:40)
[2021-12-21] MEDS: Dakins Solution 0.25% (1/2 STR.) 473 ML BTL TOPICAL SCH (10:00)
[2021-12-21 11:49] VITALS: BP 103/51
== END 2021-12-21 14:10 | DRG 871 ==
LOC: ED 13:43 → EDHOLD 11-29 01:04 → SUATTDRO 11-29 01:04 → ICU 11-29 02:20 → MED 12-05 17:58
PROVIDERS: ADMIT Hospitalist; ATTEND Family Medicine
PROC: O.CATEE (2021-12-08 12:30)